=== PATIENT | female | born 1970 | race Hispanic/Latino ===

== ENCOUNTER 2018-10-30 17:41 | Emergency (ER) | payer OTHER ==
[2018-10-30] MEDS ORDERED: dexAMETHasone 10 MG/ML VIAL ONE (18:27)
[2018-10-30] MEDS ORDERED: DIAZEPAM 5 MG TABLET ONE (18:28)
[2018-10-30] MEDS ORDERED: ONDANSETRON 4 MG/2 ML VIAL ONE (18:28)
[2018-10-30] MEDS ORDERED: KETOROLAC 30 MG/ML INJ ONE (18:28)
[2018-10-30] MEDS ORDERED: NA CHLORIDE 0.9% 250 ML ONE (18:28)
[2018-10-30] MEDS ORDERED: MORPHINE 2 MG/ML SYR ONE (18:28)
--- NOTE | 2018-10-30 18:56 | RAD REPORT ---
EXAM DESCRIPTION: CT - C Spine Wo Con - 10/30/2018 6:37 pm CLINICAL HISTORY: Left arm/shoulder radiculopathy COMPARISON: None. TECHNIQUE: Computed axial tomography of the cervical spine were obtained with sagittal and coronal r econstruction images generated and reviewed. All CT scans are performed using dose optimization technique as appropriate and may include automated exposure control or mA/KV adjustment according to patient size. FINDINGS: A cervical fracture is not seen. No dislocation No obvious large disc bulge/herniation. Central spinal stenosis is not noted A 2 centimeter right thyroid nodule suspected IMPRESSION: A cervical fracture is not seen. No significant abnormality displayed If the patient continues have symptoms to suggest spinal cord/spinal canal/ neural foramina pathology then MRI would be recommended. 2 centimeter right thyroid nodule suspected. Nonemergent thyroid ultrasound recommended
--- NOTE | 2018-10-30 19:24 | ER ---
Nurse's Notes [facility] Name: Elsa Hunter Age: 48 yrs Sex: Female : 1970 Arrival Date: 10/30/2018 Time: 17:44 Bed 19 Private MD: Diagnosis: Pain in left shoulder;Radiculopathy, cervical region Presentation: 10/30 17:49 Presenting complaint: Patient states: LEFT SHOULDER PAIN SINCE THIS MORNING. Transition bp of care: patient was not received from another setting of care. Onset of symptoms is unknown. Risk Assessment: Do you want to hurt yourself or someone else? Patient reports no desire to harm self or others. Initial Sepsis Screen: Does the patient meet any 2 criteria? No. Patient's initial sepsis screen is negative. Does the patient have a suspected source of infection? No. Patient's initial sepsis screen is negative. Care prior to arrival: None. 17:49 Method Of Arrival: Ambulatory bp 17:49 Acuity: ANASTACIA 4 bp Triage Assessment: 19:15 General: Appears in no apparent distress. comfortable, Behavior is calm, cooperative, cc3 appropriate for age. Historical: - Allergies: 17:50 No Known Allergies; bp - Home Meds: 17:50 Unable to obtain [Active]; bp - PMHx: 17:50 GERD; High Cholesterol; Hypertension; bp - Immunization history:: Adult Immunizations up to date. - Social history:: Smoking status: Patient/guardian denies using tobacco. - Ebola Screening: : No symptoms or risks identified at this time. - Family history:: not pertinent. Screenin:49 Abuse screen: Denies threats or abuse. Denies injuries from another. Nutritional ch screening: No deficits noted. Tuberculosis screening: No symptoms or risk factors identified. Fall Risk None identified. Assessment: 18:37 Pain: Complains of pain in left supraclavicular area, left clavicle, anterior aspect of ch left shoulder, left bicep, posterior aspect of left shoulder and left tricep Pain currently is 9 out of 10 on a pain scale. Pain began suddenly. Neuro: No deficits noted. Respiratory: No deficits noted. Airway is patent Trachea midline Respiratory effort is even, unlabored, Breath sounds are clear bilaterally. GI: Abdomen is round non-distended, Bowel sounds present X 4 quads. Derm: Skin is pink, warm \T\ dry. Musculoskeletal: Capillary refill Reports pain in anterior aspect of left shoulder and posterior aspect of left shoulder. 19:15 Reassessment: Patient appears in no apparent distress at this time. Patient and/or cc3 family updated on plan of care and expected duration. Pain level reassessed. Patient is alert, oriented x 3, equal unlabored respirations, skin warm/dry/pink. Received this female patient from morning shift RN Gaby as a case of left shoulder pain but now patient denies pain. With IV cannula gauge 22 at the right ACV saline locked. Patient denies pain at this time. Patient states feeling better. Patient states symptoms have improved. General: Appears in no apparent distress. comfortable, Behavior is calm, cooperative, appropriate for age. Pain: Denies pain. Neuro: Level of Consciousness is awake, alert, obeys commands, Oriented to person, place, time, situation, Appropriate for age. Cardiovascular: Denies chest pain, Capillary refill < 3 seconds in bilateral fingers Patient's skin is warm and dry. Respiratory: Airway is patent Respiratory effort is even, unlabored, Respiratory pattern is regular, symmetrical. GI: Abdomen is round non-distended. : No signs and/or symptoms were reported regarding the genitourinary system. EENT: No signs and/or symptoms were reported regarding the EENT system. Derm: Skin is intact, is healthy with good turgor, Skin is pink, warm \T\ dry. normal. Musculoskeletal: Circulation, motion, and sensation intact. Range of motion: limited in left arm. 20:00 Reassessment: Patient appears in no apparent distress at this time. Patient and/or cc3 family updated on plan of care and expected duration. Pain level reassessed. Patient is alert, oriented x 3, equal unlabored respirations, skin warm/dry/pink. Dr. Magaña discharged the patient home with prescriptions given. IV cannula removed and patient left ER vitally stable and ambulatory with her . No valuables left in the patient's room. Patient denies pain at this time. Patient states feeling better. Patient states symptoms have improved. Vital Signs: 17:50 BP 154 / 85; Pulse 71; Resp 16; Temp 98.3; Pulse Ox 99% ; Weight 69.85 kg; Height 4 ft. bp 9 in. (144.78 cm); 18:49 BP 146 / 72; Pulse 68; Resp 14; Temp 98.2; Pulse Ox 99% on R/A; Pain 6/10; ch 19:45 BP 143 / 77; Pulse 65; Resp 15 S; Pulse Ox 99% on R/A; Pain 0/10; cc3 17:50 Body Mass Index 33.32 (69.85 kg, 144.78 cm) bp ED Course: 17:44 Patient arrived in ED. mr 17:50 Triage completed. bp 17:50 Arm band placed on right wrist. bp 17:55 Andrew Magaña MD is Attending Physician. louise 18:01 Gaby Marquez, MARLYN is Primary Nurse. ch 18:15 Inserted saline lock: 22 gauge in right antecubital area, using aseptic technique. jb1 18:40 CT C Spine In Process Unspecified. EDMS 18:49 No apparent distress. Resting quietly. ch 18:49 Patient has correct armband on for positive identification. Placed in gown. Bed in low ch position. Call light in reach. Side rails up X 1. Adult w/ patient. Pulse ox on. NIBP on. Door closed. Noise minimized. Warm blanket given. Verbal reassurance given. 18:49 No provider procedures requiring assistance completed. ch 19:08 Report given to Rody holland. ch 19:18 José Miguel Love MD is Referral Physician. louise 19:37 Shoulder Left (2 View) XRAY In Process Unspecified. EDMS 20:00 IV discontinued, intact, bleeding controlled, No redness/swelling at site. Pressure cc3 dressing applied. Administered Medications: 18:30 Drug: TORadol 30 mg Route: IVP; Site: right antecubital; ch 19:05 Follow up: Response: No adverse reaction ch 18:30 Drug: morphine 2 mg Route: IVP; Site: right antecubital; ch 19:20 Follow up: Response: No adverse reaction; Pain is decreased; RASS: Alert and Calm (0) cc3 18:36 Drug: Zofran 4 mg Route: IVP; Site: right antecubital; ch 19:04 Follow up: Response: No adverse reaction; Marked relief of symptoms ch 19:04 Drug: Valium 5 mg Route: PO; ch 19:05 Follow up: Response: No adverse reaction; Marked relief of symptoms ch 19:05 Drug: Decadron - Dexamethasone 10 mg Route: IVP; Site: right antecubital; 20:00 Follow up: Response: No adverse reaction; Pain is decreased cc3 Outcome: 19:18 Discharge ordered by . louise 20:00 Discharged to home ambulatory, with family. cc3 20:00 Condition: stable 20:00 Discharge instructions given to patient, Instructed on discharge instructions, follow up and referral plans. medication usage, Demonstrated understanding of instructions, follow-up care, medications, Prescriptions given X 4. 20:02 Patient left the ED. cc3 Signatures: Dispatcher [employer] Fawad Hendrix Christina, MARLYN RN Andrew James MD MD cha Rivera, Adryan Stuart, RN RN Rody Ortega cc3
--- NOTE | 2018-10-30 19:25 | EDPHYS ---
Physician Documentation [facility] Name: Elsa Hunter Age: 48 yrs Sex: Female : 1970 Arrival Date: 10/30/2018 Time: 17:44 Bed 19 Private MD: ED Physician Andrew Magaña HPI: 10/30 18:07 This 48 yrs old Female presents to ER via Ambulatory with complaints of louise Shoulder Pain. 18:07 The patient or guardian complains of decreased range of motion. left shoulder, left louise trapezius and left sternocleidomastoid. Context: The problem was sustained at an unknown site. Onset: The symptoms/episode began/occurred 2 day(s) ago. Modifying factors: the symptoms are alleviated by nothing. remaining still, The symptoms are aggravated by lifting weight, movement, rotation of arm. Associated signs and symptoms: The patient has no apparent associated signs or symptoms. Severity of symptoms: At their worst the symptoms were moderate, in the emergency department the symptoms are unchanged. Treatment prior to arrival includes: no previous treatment. The patient has not experienced similar symptoms in the past. Historical: - Allergies: 17:50 No Known Allergies; bp - Home Meds: 17:50 Unable to obtain [Active]; bp - PMHx: 17:50 GERD; High Cholesterol; Hypertension; bp - Immunization history:: Adult Immunizations up to date. - Social history:: Smoking status: Patient/guardian denies using tobacco. - Ebola Screening: : No symptoms or risks identified at this time. - Family history:: not pertinent. ROS: 18:07 Constitutional: Negative for fever, chills, and weight loss, Eyes: Negative for injury, louise pain, redness, and discharge, ENT: Negative for injury, pain, and discharge, Neck: Negative for injury, pain, and swelling, Cardiovascular: Negative for chest pain, palpitations, and edema, Respiratory: Negative for shortness of breath, cough, wheezing, and pleuritic chest pain, Abdomen/GI: Negative for abdominal pain, nausea, vomiting, diarrhea, and constipation, Back: Negative for injury and pain, : Negative for injury, bleeding, discharge, and swelling, Skin: Negative for injury, rash, and discoloration, Neuro: Negative for headache, weakness, numbness, tingling, and seizure, Psych: Negative for depression, anxiety, suicide ideation, homicidal ideation, and hallucinations, Allergy/Immunology: Negative for hives, rash, and allergies, Endocrine: Negative for neck swelling, polydipsia, polyuria, polyphagia, and marked weight changes, Hematologic/Lymphatic: Negative for swollen nodes, abnormal bleeding, and unusual bruising. 18:07 MS/extremity: Positive for decreased range of motion, pain, tenderness, of the left supraclavicular area, left clavicle and left lateral posterior chest. Exam: 18:14 Constitutional: This is a well developed, well nourished patient who is awake, alert, louise and in no acute distress. Head/Face: Normocephalic, atraumatic. Eyes: Pupils equal round and reactive to light, extra-ocular motions intact. Lids and lashes normal. Conjunctiva and sclera are non-icteric and not injected. Cornea within normal limits. Periorbital areas with no swelling, redness, or edema. ENT: Nares patent. No nasal discharge, no septal abnormalities noted. Tympanic membranes are normal and external auditory canals are clear. Oropharynx with no redness, swelling, or masses, exudates, or evidence of obstruction, uvula midline. Mucous membranes moist. Chest/axilla: Normal chest wall appearance and motion. Nontender with no deformity. No lesions are appreciated. Cardiovascular: Regular rate and rhythm with a normal S1 and S2. No gallops, murmurs, or rubs. Normal PMI, no JVD. No pulse deficits. Respiratory: Lungs have equal breath sounds bilaterally, clear to auscultation and percussion. No rales, rhonchi or wheezes noted. No increased work of breathing, no retractions or nasal flaring. Abdomen/GI: Soft, non-tender, with normal bowel sounds. No distension or tympany. No guarding or rebound. No evidence of tenderness throughout. Back: No spinal tenderness. No costovertebral tenderness. Full range of motion. Skin: Warm, dry with normal turgor. Normal color with no rashes, no lesions, and no evidence of cellulitis. MS/ Extremity: Pulses equal, no cyanosis. Neurovascular intact. Full, normal range of motion. Neuro: Awake and alert, GCS 15, oriented to person, place, time, and situation. Cranial nerves II-XII grossly intact. Motor strength 5/5 in all extremities. Sensory grossly intact. Cerebellar exam normal. Normal gait. 18:14 Neck: External neck: is normal, no acute changes, C-spine: appears grossly normal, no acute changes, Trachea: is midline with no obvious abnormalities, ROM/movement: pain, limited range of motion, that is mild, that is moderate, when rotating to the left, with flexion, with extension, Meningeal signs: are not present, Kernig's sign is negative, Brudzinski's sign is negative, nuchal rigidity, is not appreciated. Vital Signs: 17:50 BP 154 / 85; Pulse 71; Resp 16; Temp 98.3; Pulse Ox 99% ; Weight 69.85 kg; Height 4 ft. bp 9 in. (144.78 cm); 18:49 BP 146 / 72; Pulse 68; Resp 14; Temp 98.2; Pulse Ox 99% on R/A; Pain 6/10; ch 19:45 BP 143 / 77; Pulse 65; Resp 15 S; Pulse Ox 99% on R/A; Pain 0/10; cc3 17:50 Body Mass Index 33.32 (69.85 kg, 144.78 cm) bp MDM: 17:55 Patient medically screened. [facility] 18:07 Data reviewed: vital signs, nurses notes, lab test result(s), EKG, radiologic studies. [facility] 10/30 17:57 Order name: CBC with Diff [facility] 10/30 17:57 Order name: Shoulder Left (2 View) XRAY [facility] 10/30 18:07 Order name: CT C Spine; Complete Time: 19:16 [facility] 10/30 18:07 Order name: Sling; Complete Time: 20:01 [facility] 10/30 19:17 Order name: EKG; Complete Time: 19:18 [facility] 10/30 19:17 Order name: EKG - Nurse/Tech; Complete Time: 19:54 [facility] Administered Medications: 18:30 Drug: TORadol 30 mg Route: IVP; Site: right antecubital; ch 19:05 Follow up: Response: No adverse reaction 18:30 Drug: morphine 2 mg Route: IVP; Site: right antecubital; ch 19:20 Follow up: Response: No adverse reaction; Pain is decreased; RASS: Alert and Calm (0) cc3 18:36 Drug: Zofran 4 mg Route: IVP; Site: right antecubital; 19:04 Follow up: Response: No adverse reaction; Marked relief of symptoms 19:04 Drug: Valium 5 mg Route: PO; 19:05 Follow up: Response: No adverse reaction; Marked relief of symptoms 19:05 Drug: Decadron - Dexamethasone 10 mg Route: IVP; Site: right antecubital; 20:00 Follow up: Response: No adverse reaction; Pain is decreased cc3 Disposition: 10/30/18 19:18 Discharged to Home. Impression: Pain in left shoulder, Radiculopathy, cervical region. - Condition is Stable. - Discharge Instructions: Joint Pain, Cervical Radiculopathy, Musculoskeletal Pain, Shoulder Pain, Shoulder Pain, [id number], Cervical Radiculopathy, [id number]. - Prescriptions for Ibuprofen 600 mg Oral Tablet - take 1 tablet by ORAL route every 8 hours As needed take with food; 21 tablet. Tylenol- Codeine #3 300-30 mg Oral Tablet - take 2 tablet by ORAL route every 6 hours As needed; 30 tablet. Valium 2 mg Oral Tablet - take 1 tablet by ORAL route every 8 hours As needed; 20 tablet. Medrol (Anthony) 4 mg Oral Tablets, Dose Pack - take 1 tablet by ORAL route as directed - follow package instructions; 1 packet. - Medication Reconciliation Form, Thank You Letter, Antibiotic Education, Prescription Opioid Use, Work release form form. - Follow up: Private Physician; When: 2 - 3 days; Reason: Recheck today's complaints, Continuance of care, Re-evaluation by your physician. Follow up: Dr. José Miguel Love; When: 2 - 3 days; Reason: Recheck today's complaints, Re-evaluation by your physician. - Problem is new. - Symptoms have improved. Signatures: Dispatcher [employer] EDGaby Padilla, Andrew Rutledge RN, ch, MD MD cha Peltier, Brian RN RN Rody Ortega cc3 Corrections: (The following items were deleted from the chart) 18:15 17:58 CBC with Automated Diff ordered. EDMS EDMS 18:15 17:58 COMPREHENSIVE METABOLIC PANEL+C.LAB.BRZ ordered. EDMS EDMS 18:15 17:58 TROPONIN (EMERG DEPT USE ONLY)+C.LAB.BRZ ordered. EDMS EDMS 19:06 17:57 IV Saline Lock - Large Bore ordered. [facility] 20:02 19:18 10/30/2018 19:18 Discharged to Home. Impression: Pain in left shoulder; cc3 Radiculopathy, cervical region. Condition is Stable. Discharge Instructions: Joint Pain, Cervical Radiculopathy, Musculoskeletal Pain, Shoulder Pain, Shoulder Pain, [id number], Cervical Radiculopathy, [id number]. Prescriptions for Ibuprofen 600 mg Oral Tablet - take 1 tablet by ORAL route every 8 hours As needed take with food; 21 tablet, Tylenol-Codeine #3 300-30 mg Oral Tablet - take 2 tablet by ORAL route every 6 hours As needed; 30 tablet, Valium 2 mg Oral Tablet - take 1 tablet by ORAL route every 8 hours As needed; 20 tablet, Medrol (Anthony) 4 mg Oral Tablets, Dose Pack - take 1 tablet by ORAL route as directed - follow package instructions; 1 packet. and Forms are Medication Reconciliation Form, Thank You Letter, Antibiotic Education, Prescription Opioid Use. Follow up: Private Physician; When: 2 - 3 days; Reason: Recheck today's complaints, Continuance of care, Re-evaluation by your physician. Follow up: Dr. José Miguel Love; When: 2 - 3 days; Reason: Recheck today's complaints, Re-evaluation by your physician. Problem is new. Symptoms have improved. [facility]
--- NOTE | 2018-10-30 19:57 | RAD REPORT ---
EXAM DESCRIPTION: RAD - Shoulder Left 2 View - 10/30/2018 7:37 pm CLINICAL HISTORY: Left shoulder pain FINDINGS: No fracture or dislocation is seen. Mild narrowing of the AC joint with small osteophytes
[2018-10-30 21:16] VITALS: O2SAT 99
[2018-10-30 21:17] VITALS: BP 146/72; TEMP 98.2
--- NOTE | 2018-10-31 08:29 | EKG ---
Test Date: 2018-10-30 Test Time: 19:23:55 [employer] Trouble Shooter: ALIZE MEASUREMENT RESULTS: Intervals: Rate: 63 KS: 154 QRSD: 76 QT: 414 QTc: 423 Champion: P: 44 KS: 154 QRS: 21 T: 40 INTERPRETIVE STATEMENTS: Normal sinus rhythm Septal infarct, age undetermined Abnormal ECG Compared to ECG 02/04/2016 10:36:38 Myocardial infarct finding now present Sinus bradycardia no longer present Electronically Signed On 10-31-18 08:28:25 CDT by Sb Yao
== END 2018-10-30 20:02 | disposition home or self-care (01) ==
LOC: ER 17:41
DX: M54.12 Radiculopathy, cervical region (principal); I10 Essential (primary) hypertension
CPT/HCPCS: 93005; 72125; 73030; 96375; 96374; 99284; J1100; J2270; J2405

== ENCOUNTER 2020-05-22 12:06 | Emergency (ER) | payer BC ==
--- OUTSIDE RECORDS SUMMARY | 2020-05-22 12:09 | XMS REPORT | Continuity of Care Document ---
:1970 Author Organization [facility] t Address [address] [place] [address] [address]. [address] [place] [address] Care Team Providers Name Role Phone Unavailable Unavailable Unavailable Problems Condition Condition Condition Status Onset Resolution Last Treating Co mments Source Name Details Category Date Date Treatment Clinician Date IUD IUD Problem Active [facility] (intrauter (intrauter Maria G kes - ine ine Memoria device) in device) in l place [facility] Sleep Sleep Problem Active [facility] ap[facility] Type 2 Type [address] [facility] diabetes diabetes [facility] - mellitus mellitus Mem[facility] a without without l complicati complicati Ou tpati on, on, ent without without Clinics long-term long-term current current use of use of insulin insulin Pure Pure Problem Active [facility] hyperchole hyperchole Maria G kes - sterolemia sterolemia Me moria l [facility] Essential Essential Problem Active [facility] hypertensi hypertensi Maria G kes - on on Memoria l [facility] ent Clinics Hot Hot Problem Active [facility] flashes flashes [facility] Allergies, Adverse Reactions, Alerts This patient has no known allergies or adverse reactions. Medications Ordered Filled Start Stop Current Ordering Indication Dosage Frequency Signature Comments Components Source Medication Medication Date Date Medication? Clinician (SIG) Name Name Accu-Chek Accu-Chek 2019- Yes José Miguel as [facility] Isabel 1-16 Love directed [facility] - SmartView SmartView 00:00: Mem oria test strips test strips 00 [facility] ent [facility] Accu-Chek Accu-Chek 2018- Yes José Miguel as [facility] Citlaly Citlaly 1-16 Love directed [facility] - 00:00: Memoria 00 [facility] Lovastatin Lovastatin 2017-02 Yes José Miguel [address] [facility] 0-10 Love with the [facility] - 00:00: evening Memoria 00 meal [facility] MetFORMIN MetFORMIN 2017-02 Yes José Miguel [address] [facility] HCl ER HCl ER 0-10 Love with [facility] - 00:00: evening [facility]oria 00 meal l Outpati ent Clinics Mirena (52 Mirena (52 2015-02 Yes José Miguel not [facility] MG) MG) 2-30 Love defined [facility] - 00:00: [facility] 00 l [facility]pat[facility] ent Clinics Potassium Potassium Yes José Miguel [address] [facility] Gluconate Gluconate Love [facility] Ferrous Ferrous Yes José Miguel [address] Sulfate Sulfate [facility] Vitamin C Vitamin C Yes José Miguel [address] [facility] Ibuprofen Ibuprofen Yes José Miguel not [facility] Love defined [facility] Diazepam Diazepam Yes José Miguel not [facility] Love defined [facility] Singulair Singulair Yes José Miguel [address] [facility] MethylPREDN MethylPREDN Yes José Miguel not [facility] ISolone ISolone Love defined [facility] Lisinopril Lisinopril Yes José Miguel not [facility] Love defined [facility] Acetaminoph Acetaminoph Yes José Miguel not [facility] en-Codeine en-Codeine Love defined [facility] - #3 #3 [facility] Vitamin D-3 Vitamin D-3 Yes José Miguel [address] [facility] Calcium + Calcium + Yes José Miguel not [facility] D3 D3 Love defined [facility] Zestoretic Zestoretic Yes José Miguel [address] [facility] Amlodipine Amlodipine Yes José Miguel not [facility] Besylate Besylate Love defined [facility] Magnesium Magnesium Yes José Miguel [address] [facility] Love with a [facility] - meal [facility] Fish Oil Fish Oil Yes José Miguel [address] [facility] Procedures This patient has no known procedures. Encounters Start End Encounter Admission Attending Care Care Encounter Source Date/Time Date/Time Type Type Clinicians Facility Department ID 2018-11-14 2018-11-14 Outpatient Blayne Stewart [id number] [facility] 13:27:00 13:27:00 [facility] [place]ics 2018-11-02 2018-11-02 Outpatient Blayne Stewart [id number] [facility] 10:30:00 10:30:00 t [facility] [place] ent Clinics Results This patient has no known results.
[2020-05-22] MEDS ORDERED: PANTOPRAZOLE 40 MG INJ ONE (13:11)
[2020-05-22 13:27] LABS: Absolute Lymphocytes (CBC) 3.4 K/uL (0.7-4.9); Basophils % 0.6 % (0-1.3); Hematocrit 40.4 % (36.0-45.0); MPV 9.8 fL (7.6-11.3); RBC Red Blood Cell Count 4.99 M/uL (3.86-4.86)
[2020-05-22 13:36] LABS: ALT/SGPT 50 U/L (12-78); AST/SGOT 23 U/L (15-37); Alkaline Phosphatase 120 U/L (45-117); BUN Blood Urea Nitrogen 12 mg/dL (7-18); Bicarbonate 32 mmol/L (21-32); Bilirubin Direct < 0.1 mg/dL (0-0.2); Bilirubin Total 0.3 mg/dL (0.2-1.0); Glucose Level 96 mg/dL (74-106); Lipase 149 U/L (73-393); Potassium 3.5 mmol/L (3.5-5.1); Protein, Total 7.8 g/dL (6.4-8.2); Sodium Level 143 mmol/L (136-145)
--- NOTE | 2020-05-22 14:22 | RAD REPORT ---
EXAM DESCRIPTION: CT - Abdomen Pelvis W Contrast - 05/22/2020 2:02 pm CLINICAL HISTORY: Abdominal pain COMPARISON: none. TECHNIQUE: Computed axial tomography of the abdomen pelvis was obtained. 100 cc Isovue-300 was admin istered intravenously. Oral contrast was not requested which limits evaluation of bowel. All CT scans are performed using dose optimization technique as appropriate and may include automated exposure control or mA/KV adjustment according to patient size. FINDINGS: The liver, spleen, pancreas, adrenal and kidneys appear unremarkable. There is no evidence of diverticulitis. Normal appendix IMPRESSION: No acute abnormality is displayed.
[2020-05-22] MEDS ORDERED: MORPHINE 4 MG/ML SYR ONE (14:39)
[2020-05-22] MEDS ORDERED: ONDANSETRON 4 MG/2 ML VIAL ONE (14:39)
--- NOTE | 2020-05-22 14:42 | ER ---
Nurse's Notes [facility] Name: Elsa Hunter Age: 50 yrs Sex: Female : 1970 Arrival Date: 05/22/2020 Time: 12:11 Bed 4 Private MD: Milan Jackson C Diagnosis: Upper abdominal pain, unspecified Presentation: 05/22 12:23 Chief complaint: Patient states: Epigastric pain with black diarrhea stools for 3 days. ll1 No fever or N/V. Coronavirus screen: Client denies travel out of the [place] in the last 14 days. At this time, the client does not indicate any symptoms associated with coronavirus-19. Ebola Screen: Patient denies travel to an Ebola-affected area in the 21 days before illness onset. Initial Sepsis Screen: Does the patient meet any 2 criteria? No. Patient's initial sepsis screen is negative. Does the patient have a suspected source of infection? Yes: Acute abdominal pain. Risk Assessment: Do you want to hurt yourself or someone else? Patient reports no desire to harm self or others. Onset of symptoms was May 20, 2020. 12:23 Method Of Arrival: Ambulatory ll1 12:23 Acuity: ANASTACIA 3 ll1 Historical: - Allergies: 12:23 No Known Allergies; ll1 - PMHx: 12:23 Hypertension; GERD; High Cholesterol; ll1 - PSHx: 12:23 uterine sx with mirena placement; ll1 - Immunization history:: Flu vaccine is not up to date. - Social history:: Smoking status: Patient denies any tobacco usage or history of. Screenin:45 Abuse screen: Denies threats or abuse. Denies injuries from another. Nutritional hb screening: No deficits noted. Tuberculosis screening: No symptoms or risk factors identified. Fall Risk None identified. Assessment: 12:45 General: Appears in no apparent distress. Behavior is calm, cooperative. Pain: Pain hb currently is 2 out of 10 on a pain scale. Neuro: Level of Consciousness is awake, alert, obeys commands, Oriented to person, place, time, situation. Cardiovascular: Patient's skin is warm and dry. Respiratory: Respiratory effort is even, unlabored, Respiratory pattern is regular, symmetrical. GI: Reports rectal bleeding, epigastric pain. : No signs and/or symptoms were reported regarding the genitourinary system. EENT: No signs and/or symptoms were reported regarding the EENT system. Derm: Skin is pink, warm \T\ dry. Musculoskeletal: No signs and/or symptoms reported regarding the musculoskeletal system. 13:34 Reassessment: No changes from previously documented assessment. Patient and/or family ld1 updated on plan of care and expected duration. Pain level reassessed. Patient is alert, oriented x 3, equal unlabored respirations, skin warm/dry/pink. Patient denies pain at this time. 14:13 Reassessment: Patient appears in no apparent distress at this time. Patient and/or hb family updated on plan of care and expected duration. Pain level reassessed. Patient is alert, oriented x 3, equal unlabored respirations, skin warm/dry/pink. 14:14 Reassessment: Notified ERP of BP running high. ld1 14:40 Reassessment: ERP at bedside discussing POC. ld1 Vital Signs: 12:23 BP 171 / 89; Pulse 60; Resp 17; Temp 98.5; Pulse Ox 100% ; Weight 66.68 kg; Height 4 ll1 ft. 9 in. (144.78 cm); Pain 0/10; 14:14 BP 172 / 68; Pulse 52; Resp 15; Pulse Ox 97% on R/A; hb 14:57 BP 162 / 109; Pulse 60; Resp 18; Pulse Ox 100% on R/A; Pain 0/10; ld1 12:23 Body Mass Index 31.81 (66.68 kg, 144.78 cm) ll1 ED Course: 12:11 Patient arrived in ED. mr 12:12 Milan Jackson MD is Private Physician. mr 12:22 Arm band placed on. ll1 12:24 Triage completed. ll1 12:32 Celsa Garcia, MARLYN is Primary Nurse. hb 12:41 [facility]-C [facility] kb 12:41 Kelton Merchant MD is Attending Physician. kb 12:45 Patient has correct armband on for positive identification. Bed in low position. Call hb light in reach. 13:12 Inserted saline lock: 20 gauge in left antecubital area, using aseptic technique. Blood ld1 collected. 14:01 CT Abd/Pelvis - IV Contrast Only In Process Unspecified. EDMS 14:41 Milan Jackson MD is Referral Physician. kb 14:59 No provider procedures requiring assistance completed. Patient transferred, IV remains ld1 in place. bleeding controlled, No redness/swelling at site. Pressure dressing applied. Administered Medications: 13:11 Drug: ProTONIX 40 mg Route: IVP; Site: left antecubital; ld1 14:00 Follow up: Response: No adverse reaction hb 14:30 Drug: morphine 4 mg Route: IVP; Site: left antecubital; ld1 14:30 Drug: Zofran (Ondansetron) 4 mg Route: IVP; Site: left antecubital; ld1 Outcome: 14:41 Discharge ordered by . kb 15:00 Discharged to home via wheelchair. ld1 15:00 Condition: stable 15:00 Discharge instructions given to patient, Instructed on discharge instructions, follow up and referral plans. medication usage, Demonstrated understanding of instructions, follow-up care, medications. 15:02 Patient left the ED. ld1 Signatures: Dispatcher [employer] EDMS Tresa Al, LILLIAN-C GRAPHIC ART SALES REPRESENTATIVE-Cristina Lynch Heather, RN Cristi Scanlon RN RN ll1 Felicita Queen RN RN ld1
--- NOTE | 2020-05-22 14:42 | EDPHYS ---
Physician Documentation [facility] Name: Elsa Hunter Age: 50 yrs Sex: Female : 1970 Arrival Date: 05/22/2020 Time: 12:11 Bed 4 Private MD: Milan Jackson C ED Physician Kelton Merchant HPI: 05/22 15:33 This 50 yrs old Female presents to ER via Ambulatory with complaints of kb Black/Tarry Stools. 15:33 The patient presents with abdominal pain in the epigastric area. Onset: The kb symptoms/episode began/occurred 3 day(s) ago. The symptoms do not radiate. Associated signs and symptoms: Pertinent positives: black stool. The symptoms are described as constant. Modifying factors: The symptoms are alleviated by nothing, the symptoms are aggravated by nothing. Severity of pain: At its worst the pain was mild moderate in the emergency department the pain is unchanged. The patient has not experienced similar symptoms in the past. The patient has not recently seen a physician. Historical: - Allergies: 12:23 No Known Allergies; ll1 - PMHx: 12:23 Hypertension; GERD; High Cholesterol; ll1 - PSHx: 12:23 uterine sx with mirena placement; ll1 - Immunization history:: Flu vaccine is not up to date. - Social history:: Smoking status: Patient denies any tobacco usage or history of. ROS: 15:33 Constitutional: Negative for fever, chills, and weight loss, Cardiovascular: Negative kb for chest pain, palpitations, and edema, Respiratory: Negative for shortness of breath, cough, wheezing, and pleuritic chest pain, MS/Extremity: Negative for injury and deformity, Skin: Negative for injury, rash, and discoloration, Neuro: Negative for headache, weakness, numbness, tingling, and seizure. 15:33 Abdomen/GI: Positive for abdominal pain, black/tarry stool. Exam: 15:32 Constitutional: This is a well developed, well nourished patient who is awake, alert, kb and in no acute distress. Head/Face: Normocephalic, atraumatic. Cardiovascular: Regular rate and rhythm with a normal S1 and S2. No gallops, murmurs, or rubs. No pulse deficits. Respiratory: Respirations even and unlabored. No increased work of breathing, no retractions or nasal flaring. Back: No spinal tenderness. No costovertebral tenderness. Full range of motion. Skin: Warm, dry with normal turgor. Normal color. MS/ Extremity: Pulses equal, no cyanosis. Neurovascular intact. Full, normal range of motion. Neuro: Awake and alert, GCS 15, oriented to person, place, time, and situation. Moves all extremities. Normal gait. 15:32 Abdomen/GI: Inspection: abdomen appears normal, Bowel sounds: normal, in all quadrants, Palpation: soft, in all quadrants, mild abdominal tenderness, in the epigastric area, Rectal exam: rectal tone normal, Stool: guaiac negative, black. Vital Signs: 12:23 BP 171 / 89; Pulse 60; Resp 17; Temp 98.5; Pulse Ox 100% ; Weight 66.68 kg; Height 4 ll1 ft. 9 in. (144.78 cm); Pain 0/10; 14:14 BP 172 / 68; Pulse 52; Resp 15; Pulse Ox 97% on R/A; hb 14:57 BP 162 / 109; Pulse 60; Resp 18; Pulse Ox 100% on R/A; Pain 0/10; ld1 12:23 Body Mass Index 31.81 (66.68 kg, 144.78 cm) ll1 MDM: 12:41 Patient medically screened. kb 15:31 Data reviewed: vital signs, nurses notes. Data interpreted: Pulse oximetry: on room air kb is 100 %. Interpretation: normal. Counseling: I had a detailed discussion with the patient and/or guardian regarding: the historical points, exam findings, and any diagnostic results supporting the discharge/admit diagnosis, lab results, radiology results, the need for outpatient follow up, a family practitioner, a field associate, to return to the emergency department if symptoms worsen or persist or if there are any questions or concerns that arise at home. 05/22 12:42 Order name: Basic Metabolic Panel; Complete Time: 13:40 kb 05/22 12:42 Order name: CBC with Diff kb 05/22 12:42 Order name: Hepatic Function; Complete Time: 13:40 kb 05/22 12:42 Order name: Lipase; Complete Time: 13:40 kb 05/22 13:30 Order name: Troponin (emerg Dept Use Only); Complete Time: 14:37 kb 05/22 15:00 Order name: CBC Smear Scan EDWA 05/22 12:42 Order name: IV Saline Lock; Complete Time: 13:12 kb 05/22 12:42 Order name: Labs collected and sent; Complete Time: 13:12 kb 05/22 13:30 Order name: EKG; Complete Time: 13:31 kb 05/22 13:31 Order name: EKG - Nurse/Tech; Complete Time: 13:41 kb 05/22 13:40 Order name: CT Abd/Pelvis - IV Contrast Only; Complete Time: 14:26 kb Administered Medications: 13:11 Drug: ProTONIX 40 mg Route: IVP; Site: left antecubital; ld1 14:00 Follow up: Response: No adverse reaction hb 14:30 Drug: morphine 4 mg Route: IVP; Site: left antecubital; ld1 14:30 Drug: Zofran (Ondansetron) 4 mg Route: IVP; Site: left antecubital; ld1 Disposition: 05/23 06:55 Co-signature as Attending Physician, Kelton Merchant MD I agree with the assessment and kdr plan of care. Disposition: 05/22/20 14:41 Discharged to Home. Impression: Upper abdominal pain, unspecified. - Condition is Stable. - Discharge Instructions: Gastroesophageal Reflux Disease, Adult, Abdominal Pain, Adult, [id number]. - Prescriptions for Protonix 40 mg Oral Tablet - take 1 tablet by ORAL route once daily; 30 tablet. - Medication Reconciliation Form, Thank You Letter, Antibiotic Education, Prescription Opioid Use form. - Work release form (05/22/20 15:05). sv - Follow up: Emergency Department; When: As needed; Reason: Worsening of condition. Follow up: Milan Jackson MD; When: 2 - 3 days; Reason: Recheck today's complaints, Continuance of care, Re-evaluation by your physician. Signatures: Dispatcher [employer] [facility] Tresa Al, COMMERCIAL ESCROW ASSISTANT-C COMMERCIAL ESCROW ASSISTANT-Kelton Chen MD MD kdr Lewis, Lynsay RN RN ll1 Felicita Queen RN RN ld1 Angelita Frey RN, Heather RN Corrections: (The following items were deleted from the chart) 05/22 15:02 14:41 05/22/2020 14:41 Discharged to Home. Impression: Upper abdominal pain, ld1 unspecified. Condition is Stable. Forms are Medication Reconciliation Form, Thank You Letter, Antibiotic Education, Prescription Opioid Use. Follow up: Emergency Department; When: As needed; Reason: Worsening of condition. Follow up: A Jackson; When: 2 - 3 days; Reason: Recheck today's complaints, Continuance of care, Re-evaluation by your physician. kb
[2020-05-22 15:00] LABS: Blood Morphology Comment NOT SEEN (NOT SEEN); Platelet Estimate ADEQ; White Blood Cell Scan OK (OK)
[2020-05-22 15:13] VITALS: TEMP 98.5
[2020-05-22 15:15] VITALS: BP 162/109; O2SAT 100
== END 2020-05-22 15:02 | disposition home or self-care (01) ==
LOC: ER 12:06
DX: R10.13 Epigastric pain (principal); I10 Essential (primary) hypertension
CPT/HCPCS: 93005; 85025; 80048; 36415; 80076; 84484; 83690; 74177; 96375; 96374; 99284; Q9967; C9113; J2405

== ENCOUNTER 2020-07-26 19:12 | Emergency (ER) | payer BC ==
--- OUTSIDE RECORDS SUMMARY | 2020-07-26 19:15 | XMS REPORT | Continuity of Care Document ---
:1970 Author Organization [facility] t Address [address] [place] [address] [address] [place] [address] Care Team Providers Name Role Phone Unavailable Unavailable Unavailable Problems Condition Condition Condition Status Onset Resolution Last Treating Co mments Source Name Details Category Date Date Treatment Clinician Date IUD IUD Problem Active [facility] (intrauter (intrauter Maria G kes - ine ine Memoria device) in device) [facility] Sleep Sleep Problem [facility] Type 2 Type [address] [facility] diabetes diabetes [facility] - mellitus mellitus Memori a without without l complicati complicati Ou tpati on, on, ent without without Clinics long-term long-term current current use of use of insulin insulin Pure Pure Problem Active [facility] hyperchole hyperchole Maria G kes - sterolemia sterolemia Me [facility] Essential Essential Problem Active [facility] hypertensi hypertensi Maria G kes - on on Memoria l [facility] Hot Hot Problem Active [facility] flashes flashes [facility] Allergies, Adverse Reactions, Alerts This [...] Mem oria test strips test strips 00 [facility] ent [facility] Accu-Chek Accu-Chek 2018- Yes José Miguel as [facility] Citlaly Citlaly 1-16 Love directed [facility] - 00:00: Memoria 00 [facility] ent [facility] Lovastatin Lovastatin 2017-02 Yes José Miguel [address] [facility] 0-10 Lvoe with the [facility] - 00:00: evening Memoria 00 meal [facility] ent [facility] MetFORMIN MetFORMIN 2017-02 Yes José Miguel 1 [...] ID 2018-11-14 2018-11-14 Outpatient Blayne Stewart [id number] [facility] 13:27:00 13:27:00 t [facility] - [facility] Clinics 2018-11-02 2018-11-02 Outpatient Blayne Stewart [id number] [facility] St 10:30:00 10:30:00 t [facility] and [facility] - and [facility] ent Clinics Results This patient has no known results.
[2020-07-26 19:33] LABS: Urine Blood Trace-intact (Negative); Urine Glucose Negative (Negative); Urine Protein Negative (Negative); Urine Specific Gravity 1.015 (1.005-1.030)
[2020-07-26 20:07] LABS: Urine Bacteria <20 /HPF (<20); Urine RBC <5 /HPF (NONE SEEN)
[2020-07-26 20:08] LABS: Absolute Lymphocytes (CBC) 4.6 K/uL (0.7-4.9); Basophils % 0.5 % (0-1.3); Hematocrit 38.3 % (36.0-45.0); Lymphocytes % 47.5 % (15.3-44.8); MPV 10.5 fL (7.6-11.3); RBC Red Blood Cell Count 4.83 M/uL (3.86-4.86)
[2020-07-26 20:31] LABS: ALT/SGPT 38 U/L (12-78); Albumin 3.7 g/dL (3.4-5.0); Alkaline Phosphatase 112 U/L (45-117); BUN Blood Urea Nitrogen 14 mg/dL (7-18); Bicarbonate 29 mmol/L (21-32); Bilirubin Direct < 0.1 mg/dL (0-0.2); Bilirubin Total 0.4 mg/dL (0.2-1.0); Glucose Level 99 mg/dL (74-106); Lipase 121 U/L (73-393); Protein, Total 7.5 g/dL (6.4-8.2); Sodium Level 140 mmol/L (136-145)
[2020-07-26 20:33] LABS: AST/SGOT 27 U/L (15-37); Potassium 3.8 mmol/L (3.5-5.1)
--- NOTE | 2020-07-26 21:24 | RAD REPORT ---
EXAM DESCRIPTION: CT - Abdomen Pelvis W Contrast - 07/26/2020 9:13 pm CLINICAL HISTORY: Abdominal pain COMPARISON: May 2020 TECHNIQUE: Computed axial tomography of the abdomen pelvis was obtained. 100 cc Isovue-300 was admin istered intravenously. Oral contrast was not requested which limits evaluation of bowel. All CT scans are performed using dose optimization technique as appropriate and may include automated exposure control or mA/KV adjustment according to patient size. FINDINGS: The liver, spleen, pancreas, adrenal and kidneys appear unremarkable. There is no evidence of diverticulitis. Normal appendix Fibroids are present within the uterus. IMPRESSION: No acute abnormality is displayed.
--- NOTE | 2020-07-26 21:59 | ER ---
Nurse's Notes [facility] Name: Elsa Hunter Age: 50 yrs Sex: Female : 1970 Arrival Date: 07/26/2020 Time: 19:19 Bed 14 Private MD: Diagnosis: Generalized abdominal pain Presentation: 07/26 19:20 Chief complaint: Patient states: Right side of my abdomen is hurting so bad and loss of rr5 appetite for the past 3 days, denies N/V/D or fever. Coronavirus screen: Client denies travel out of the [place] in the last 14 days. At this time, the client does not indicate any symptoms associated with coronavirus-19. Ebola Screen: Patient negative for fever greater than or equal to 101.5 degrees Fahrenheit, and additional compatible Ebola Virus Disease symptoms Patient denies exposure to infectious person. Patient denies travel to an Ebola-affected area in the 21 days before illness onset. Initial Sepsis Screen: Does the patient meet any 2 criteria? No. Patient's initial sepsis screen is negative. Does the patient have a suspected source of infection? No. Patient's initial sepsis screen is negative. Risk Assessment: Do you want to hurt yourself or someone else? Patient reports no desire to harm self or others. Onset of symptoms was July 23, 2020. 19:20 Method Of Arrival: Ambulatory rr5 19:20 Acuity: ANASTACIA 3 rr5 Triage Assessment: 19:36 General: Appears in no apparent distress. Behavior is calm, cooperative. ak2 Historical: - Allergies: 19:24 No Known Allergies; rr5 - Home Meds: 19:24 Lisinopril Oral [Active]; amlodipine oral [Active]; rr5 - PMHx: 19:24 GERD; High Cholesterol; Hypertension; rr5 - PSHx: 19:24 D \T\ C; rr5 - Immunization history:: Adult Immunizations not up to date, Client reports receiving the 2nd dose of the Covid vaccine, 2 weeks ago. - Social history:: Smoking status: unknown Patient/guardian denies using alcohol, street drugs, tobacco products. Screenin:35 Abuse screen: Denies threats or abuse. Denies injuries from another. Nutritional ak2 screening: No deficits noted. Tuberculosis screening: No symptoms or risk factors identified. Fall Risk None identified. Assessment: 19:35 Pain: Complains of pain in abdomen. GI: Bowel sounds present X 4 quads. Abd is soft X 4 ak2 quads. 21:34 Reassessment: Patient appears in no apparent distress at this time. Patient and/or ak2 family updated on plan of care and expected duration. Pain level reassessed. Vital Signs: 19:20 BP 154 / 91; Pulse 65; Resp 18; Temp 98.4; Pulse Ox 100% ; Weight 67.13 kg; Height 4 rr5 ft. 9 in. (144.78 cm); Pain 5/10; 21:34 BP 136 / 74; Pulse 62; Resp 18; Pulse Ox 98% on R/A; ak2 19:20 Body Mass Index 32.03 (67.13 kg, 144.78 cm) rr5 ED Course: 19:19 Patient arrived in ED. cf2 19:23 Triage completed. rr5 19:24 Arm band placed on right wrist. rr5 19:25 Arnulfo Hamilton NP is PHCP. pm1 19:25 Levar Larios MD is Attending Physician. pm1 19:34 Aaron Unger is Primary Nurse. ak2 19:35 Patient has correct armband on for positive identification. ak2 19:35 No provider procedures requiring assistance completed. Inserted saline lock: 20 gauge ak2 in right antecubital area, using aseptic technique. 21:13 CT Abd/Pelvis - IV Contrast Only In Process Unspecified. EDMS 21:16 PHCP role handed off by Arnulfo Hamilton NP [facility] 21:16 Man Dunn PA is PHCP. [facility] 21:58 Brian Zhang MD is Referral Physician. [facility] Administered Medications: 20:27 Drug: NS 0.9% 1000 ml Route: IV; Rate: 1000 ml; Site: right antecubital; ak2 Point of Care Testing: Urine : 20:27 hCG Reading: Negative; Control Reading: Negative; ak2 Outcome: 21:58 Discharge ordered by . samantha 22:05 Discharged to home ambulatory. ak2 22:05 Condition: good 22:05 Discharge instructions given to patient, Prescriptions given X 22:06 Patient left the ED. ak2 Signatures: Dispatcher [employer] EDMS Man Dunn PA PA jmm Marinas, Patrick, NP NP pm1 Andre Pearl, RN RN rr5 Oswald Grimes cf2 Aaron Unger ar2
--- NOTE | 2020-07-26 22:00 | EDPHYS ---
Physician Documentation [facility] Name: Elsa Hunter Age: 50 yrs Sex: Female : 1970 Arrival Date: 07/26/2020 Time: 19:19 Bed 14 Private MD: ED Physician Levar Larios HPI: 07/26 19:36 This 50 yrs old Female presents to ER via Ambulatory with complaints of pm1 Abdominal Pain, Decreased Appetite. 19:36 The patient presents with abdominal pain right lower quadrant. Onset: The pm1 symptoms/episode began/occurred 3 day(s) ago. The symptoms do not radiate. Associated signs and symptoms: Pertinent positives: decreased appetite, Pertinent negatives: nausea, vomiting, and diarrhea, chest pain, dysuria, fever, shortness of breath. The symptoms are described as sharp, and gassiness. Modifying factors: The symptoms are alleviated by nothing, tried some gas-x but no relief. the symptoms are aggravated by nothing. Severity of pain: in the emergency department the pain is actually worse. The patient has not experienced similar symptoms in the past. The patient has not recently seen a physician. Historical: - Allergies: 19:24 No Known Allergies; rr5 - Home Meds: 19:24 Lisinopril Oral [Active]; amlodipine oral [Active]; rr5 - PMHx: 19:24 GERD; High Cholesterol; Hypertension; rr5 - PSHx: 19:24 D \T\ C; rr5 - Immunization history:: Adult Immunizations not up to date, Client reports receiving the 2nd dose of the Covid vaccine, 2 weeks ago. - Social history:: Smoking status: unknown Patient/guardian denies using alcohol, street drugs, tobacco products. ROS: 19:36 Constitutional: Negative for fever, chills, and weight loss, Cardiovascular: Negative pm1 for chest pain, palpitations, and edema, Respiratory: Negative for shortness of breath, cough, wheezing, and pleuritic chest pain. 19:36 Back: Negative for injury and pain, : Negative for injury, bleeding, discharge, and swelling, MS/Extremity: Negative for injury and deformity, Skin: Negative for injury, rash, and discoloration, Neuro: Negative for headache, weakness, numbness, tingling, and seizure. 19:36 Abdomen/GI: Positive for abdominal pain, Negative for nausea, vomiting, and diarrhea. 19:36 All other systems are negative. Exam: 19:36 Constitutional: This is a well developed, well nourished patient who is awake, alert, pm1 and in no acute distress. Head/Face: Normocephalic, atraumatic. 19:36 Back: No spinal tenderness. No costovertebral tenderness. Full range of motion. Skin: Warm, dry with normal turgor. Normal color with no rashes, no lesions, and no evidence of cellulitis. MS/ Extremity: Pulses equal, no cyanosis. Neurovascular intact. Full, normal range of motion. 19:36 Eyes: Exam is negative for acute changes, Periorbital structures: appear normal, Pupils: no acute changes, Extraocular movements: no acute changes. 19:36 ENT: Exam is negative for acute changes, Mouth: Lips: normal, Oral mucosa: normal, pink and intact, moist. 19:36 Cardiovascular: Rate: normal, Rhythm: regular, Pulses: no pulse deficits are appreciated, Heart sounds: normal, Edema: is not appreciated. 19:36 Respiratory: Exam negative for acute changes, respiratory distress, shortness of breath, Breath sounds: are clear throughout. 19:36 Abdomen/GI: Inspection: obese Palpation: soft, in all quadrants, mild abdominal tenderness, in the right lower quadrant, mass, is not appreciated, rebound tenderness, is not appreciated. 19:36 Neuro: Exam negative for acute changes, Orientation: is normal, Mentation: is normal, Motor: is normal, moves all fours. Vital Signs: 19:20 BP 154 / 91; Pulse 65; Resp 18; Temp 98.4; Pulse Ox 100% ; Weight 67.13 kg; Height 4 rr5 ft. 9 in. (144.78 cm); Pain 5/10; 21:34 BP 136 / 74; Pulse 62; Resp 18; Pulse Ox 98% on R/A; ak2 19:20 Body Mass Index 32.03 (67.13 kg, 144.78 cm) rr5 MDM: 19:31 Patient medically screened. pm1 20:38 Data reviewed: vital signs. Data interpreted: Pulse oximetry: on room air is 100 %. pm1 Interpretation: normal. 21:56 Counseling: I had a detailed discussion with the patient and/or guardian regarding: the [facility] historical points, exam findings, and any diagnostic results supporting the discharge/admit diagnosis, lab results, radiology results, the need for outpatient follow up, to return to the emergency department if symptoms worsen or persist or if there are any questions or concerns that arise at home. ED course: Patient advised to follow up with pcp and otherwise given strict return precautions. patient understood and agrees with the plan of care. . 07/26 19:32 Order name: Urine Microscopic Only [facility] 07/26 19:32 Order name: Urine Dipstick-Ancillary; Complete Time: 20:07 [facility] 07/26 19:32 Order name: Urine Microscopic Only; Complete Time: 20:33 [facility] 07/26 19:37 Order name: Basic Metabolic Panel; Complete Time: 20:38 pm 07/26 19:37 Order name: CBC with Diff; Complete Time: 20:33 pm 07/26 19:37 Order name: Hepatic Function; Complete Time: 20:38 [facility] 07/26 19:32 Order name: Urine Dipstick-Ancillary (obtain specimen); Complete Time: 19:32 [facility] 07/26 19:37 Order name: Lipase; Complete Time: 20:38 pm 07/26 19:37 Order name: IV Saline Lock [facility] 07/26 19:37 Order name: Labs collected and sent [facility] 07/26 19:37 Order name: CT Abd/Pelvis - IV Contrast Only; Complete Time: 21:40 [facility] 07/26 19:37 Order name: Urine Dipstick-Ancillary (obtain specimen) [facility] 07/26 20:08 Order name: Urine Culture [facility] 07/26 19:37 Order name: Urine Test (obtain specimen) [facility] 07/26 19:37 Order name: NPO pm1 Administered Medications: 20:27 Drug: NS 0.9% 1000 ml Route: IV; Rate: 1000 ml; Site: right antecubital; ak2 Point of Care Testing: Urine : 20:27 hCG Reading: Negative; Control Reading: Negative; ak2 Disposition: 07/27 05:12 Co-signature as Attending Physician, Levar Larios MD. [email or web address] Disposition: 07/26/20 21:58 Discharged to Home. Impression: Generalized abdominal pain. - Condition is Stable. - Discharge Instructions: Abdominal Pain, Adult. - Prescriptions for Bentyl 20 mg Oral Tablet - take 1 tablet by ORAL route every 6 hours As needed; 20 tablet. Pepcid 20 mg Oral Tablet - take 1 tablet by ORAL route every 12 hours for 10 days; 20 tablet. - Medication Reconciliation Form, Thank You Letter, Antibiotic Education, Prescription Opioid Use form. - Follow up: Brian Zhang MD; When: 2 - 3 days; Reason: Recheck today's complaints, Continuance of care, Re-evaluation by your physician. Signatures: Dispatcher [employer] EDMS Man Dunn PA PA kaylim Arnulfo Hamilton, STATEMENT CLERKS MANAGER STATEMENT CLERKS MANAGER pm1 Andre Pearl, RN RN rr5 Levar Larios MD MD 7 Aaron Unger ak2 Corrections: (The following items were deleted from the chart) 07/26 21:11 19:36 The symptoms are described as sharp, pm1 pm1 21:11 19:36 Modifying factors: The symptoms are alleviated by nothing, the symptoms are pm1 aggravated by nothing. pm1 22:06 21:58 07/26/2020 21:58 Discharged to Home. Impression: Generalized abdominal pain. ak2 Condition is Stable. Forms are Medication Reconciliation Form, Thank You Letter, Antibiotic Education, Prescription Opioid Use. Follow up: Brian Zhang; When: 2 - 3 days; Reason: Recheck today's complaints, Continuance of care, Re-evaluation by your physician. samantha
[2020-07-26 22:14] VITALS: TEMP 98.4
[2020-07-26 22:15] VITALS: BP 136/74; O2SAT 98
== END 2020-07-26 22:06 | disposition home or self-care (01) ==
LOC: ER 19:12
DX: R10.84 Generalized abdominal pain (principal); I10 Essential (primary) hypertension
CPT/HCPCS: 87088; 85025; 87086; 80048; 36415; 80076; 83690; 74177; Q9967; 81003; 81015

== ENCOUNTER 2022-10-07 11:33 | Emergency (ER) | payer OTHER ==
--- OUTSIDE RECORDS SUMMARY | 2022-10-07 11:36 | XMS REPORT | Continuity of Care Document ---
:1970 Author Organization [facility] t Address [address] [place] [address] [address] [place] [address] Care Team Providers Name Role Phone Umesh Jackson Attending Clinician Unavailable Corin Soriano Attending Clinician Unavailable ROMANA JOSEPH Attending Clinician Unavailable Corin Soriano Admitting Clinician Unavailable Payers Payer Name Policy Type Policy Number Effective Date Expiration Date S gwendolyn [facility] [id number] 2019 00:00:00 Blue Cross C1 [id number] Common Spiri t [facility] Blue Cross C1 [id number] Common Spiri t Blue [facility] Blue Cross C1 [id number] Common Spiri t [employer] [facility] Blue Cross C1 [id number] Common Spiri t [facility] Blue Cross C1 [id number] Common Spiri t Blue [facility] Problems Condition Condition Condition Status Onset Resolution Last Treating Co mments Source Name Details Category Date Date Treatment Clinician Date Sleep Sleep Problem Active Common apnea apnea [facility] - [facility] [id number] IUD Problem Active Common (intrauter [facility] device) in [facility] [id number] Type 2 Problem Active Common diabetes [facility] mellitus - [facility] without [facility], [facility] long-term current use of insulin [id number] Pure Problem Active Common hyperchole [facility] sterolemia [facility] [id number] Hot Problem Active Common flashes [facility] [id number] Essential Problem Active Comm on hypertensi [place] Allergies, Adverse Reactions, Alerts Allergy Allergy Status Severity Reaction(s) Onset Inactive Treating Comm ents Source Name Type Date Date Clinician NO KNOWN Drug Active Univers ALLERGIE Class ity of S [facility] Social History Social Habit Start Date Stop Date Quantity Comments Source History of Tobacco Use Co mmon [facility] Sex Assigned At Com mon [facility] Smoking Status Start Date Stop Date Source Never Smoker Common [facility] Medications Ordered Filled Start Stop Current Ordering Indication Dosage Frequency Signature Comments Components Source Medication Medication Date Date Medication? Clinician (SIG) Name Name Meloxicam Meloxicam 2020- No 1{table QD Meloxicam 7.5 MG 7.5 MG 08-07 t} 7.5 MG 00:00: 00:00 00 :00 Meloxicam Meloxicam 2020- No 1{table QD Meloxicam 7.5 MG 7.5 MG 08-07 t} 7.5 MG 00:00: 00:00 00 :00 Accu-Chek Accu-Chek 2019-0 Yes José Miguel as Common Isabel Isabel -16 Love directed Spirit [facility] SmartView 00:00: - C HI test strips test strips [facility] Accu-Chek Accu-Chek 2019-0 Yes José Miguel as Common Citlaly Citlaly 1-16 Love directed Spirit 00:00: - [facility] Lovastatin Lovastatin 2017-02 Yes José Miguel 1 tablet Common 0-10 Love with the Spirit 00:00: evening - [facility] MetFORMIN MetFORMIN 2017-02 Yes José Miguel 1 tablet Common HCl ER HCl ER 0-10 Love with Spirit 00:00: evening - [facility] Mirena (52 Mirena (52 2015-02 Yes José Miguel not Common MG) MG) 2-30 Love defined Spirit 00:00: - [facility] Potassium Potassium Yes José Miguel 1 tablet Common Gluconate Gluconate Love Spiri t - [facility] Ferrous Ferrous Yes José Miguel 1 tablet Co mmon Sulfate Sulfate Love Spirit [facility] Vitamin C Vitamin C Yes José Miguel 1 tablet Common Love [facility] Ibuprofen Ibuprofen Yes José Miguel not Co mmon Love defined Spirit [facility] Diazepam Diazepam Yes Jsoé Miguel not Comm on Love defined Spirit [facility] Singulair Singulair Yes José Miguel 1 tablet Common Love Spirit [facility] MethylPREDN MethylPREDN Yes José Miguel not Common ISolone ISolone Love defined Spirit [facility] Lisinopril Lisinopril Yes José Miguel not Common Love defined Spirit [facility] Acetaminoph Acetaminoph Yes José Miguel not Common en-Codeine en-Codeine Love defined Spirit #3 #3 - [facility] Vitamin D-3 Vitamin D-3 Yes José Miguel 1 capsule Common Love [facility] Calcium + Calcium + Yes José Miguel not Co mmon D3 D3 Love defined [facility] Zestoretic Zestoretic Yes José Miguel 1 tablet Common Love [facility] Amlodipine Amlodipine Yes José Miguel not Common Besylate Besylate Love defined Spir it [facility] Magnesium Magnesium Yes José Miguel 1 tablet Common Love with a Spirit meal [facility] Fish Oil Fish Oil Yes José Miguel 1 capsule Common Love [facility] Ibuprofen Ibuprofen No Ibuprofen amLODIPine amLODIPine No amLODIPine Besylate Besylate Besylate methylPREDN methylPREDN No methylPRED ISolone ISolone NISolone Acetaminoph Acetaminoph No Acetaminop en-Codeine en-Codeine hen-Codein #3 #3 e #3 diazePAM diazePAM No diazePAM Lisinopril Lisinopril No Lisinopril Ibuprofen Ibuprofen No Ibuprofen amLODIPine amLODIPine No amLODIPine Besylate Besylate Besylate methylPREDN methylPREDN No methylPRED ISolone ISolone NISolone Acetaminoph Acetaminoph No Acetaminop en-Codeine en-Codeine hen-Codein #3 #3 e #3 diazePAM diazePAM No diazePAM Lisinopril Lisinopril No Lisinopril Ibuprofen Ibuprofen No Ibuprofen amLODIPine amLODIPine No amLODIPine Besylate Besylate Besylate methylPREDN methylPREDN No methylPRED ISolone ISolone NISolone Acetaminoph Acetaminoph No Acetaminop en-Codeine en-Codeine hen-Codein #3 #3 e #3 diazePAM diazePAM No diazePAM Lisinopril Lisinopril No Lisinopril Ibuprofen Ibuprofen No Ibuprofen amLODIPine amLODIPine No amLODIPine Besylate Besylate Besylate Acetaminoph Acetaminoph No Acetaminop en-Codeine en-Codeine hen-Codein #3 #3 e #3 diazePAM diazePAM No diazePAM Lisinopril Lisinopril No Lisinopril methylPREDN methylPREDN No methylPRED ISolone ISolone NISolone Ibuprofen Ibuprofen No Ibuprofen amLODIPine amLODIPine No amLODIPine Besylate Besylate Besylate Acetaminoph Acetaminoph No Acetaminop en-Codeine en-Codeine hen-Codein #3 #3 e #3 diazePAM diazePAM No diazePAM Lisinopril Lisinopril No Lisinopril methylPREDN methylPREDN No methylPRED ISolone ISolone NISolone Vital Signs Vital Name Observation Time Observation Value Comments Source height 2020-08-07 11:00:00 58 [in_i] [facility] weight 2020-08-07 11:00:00 151 [lb_av] [facility] temperature 2020-08-07 11:00:00 97.7 [degF] Common [facility] bmi 2020-08-07 11:00:00 31.56 kg/m2 [facility] blood pressure 2020-08-07 11:00:00 152 mm[Hg] Common [facility] - systolic [facility] blood pressure 2020-08-07 11:00:00 90 mm[Hg] Common [facility] - diastolic [facility] height 2020-07-28 11:00:00 58 [in_i] [facility] weight 2020-07-28 11:00:00 151.6 [lb_av] Common [facility] - [facility] bmi 2020-07-28 11:00:00 31.68 kg/m2 Common S pirit [facility] blood pressure 2020-07-28 11:00:00 122 mm[Hg] Common [facility] - systolic [facility] blood pressure 2020-07-28 11:00:00 78 mm[Hg] Common [facility] - diastolic [facility] Procedures This patient has no known procedures. Encounters Start End Encounter Admission Attending Care Care Encounter Source Date/Time Date/Time Type Type Clinicians Facility Department ID 2021-03-04 Outpatient Jackson, STLMLC STLMLC [id number] Common 13:21:31 Umesh [id number] [facility] 2021-03-04 Outpatient Jackson, STLMLC STLMLC [id number] Common 13:16:58 Umesh [id number] [facility] 2021-03-04 Outpatient Jackson, STLMLC STLMLC [id number] Common 13:16:03 Umesh [id number] [facility] 2022-03-02 2022-03-02 Outpatient SYED [facility] [id number] [facility] 10:10:00 10:10:00 Corin Lloyd [facility] 2020-09-09 2020-09-09 Outpatient Sherry JOSEPH [facility] [id number] 18:00:00 18:00:00 ROMANA erickson [facility] 2020-08-07 2020-08-07 (TEL) STLMLC STLMLC [id number] Co mmon 00:00:00 00:00:00 [facility] 2020-08-07 2020-08-07 OFFICE STLMLC STLMLC [id number] Co mmon 00:00:00 00:00:[address] 2020-07-30 2020-07-30 (TEL) STLMLC STLMLC [id number] Co mmon 00:00:00 00:00:00 [facility] 2020-07-29 2020-07-29 (TEL) STLMLC STLMLC [id number] Co mmon 00:00:00 00:00:00 [facility] 2020-07-28 2020-07-28 OFFICE STLMLC STLMLC [id number] Co mmon 00:00:00 00:00:00 VISIT [facility] 2018-11-14 2018-11-14 Outpatient Blayne Stewart [id number] Common 13:27:00 13:27:00 [facility] 2018-11-02 2018-11-02 Outpatient Blayne Stewart [id number] Common 10:30:00 10:30:00 [facility] Results Test Description Test Time Test Comments Results Result Comments Source MRI Knee Left Wo Cont MRI Knee Left Wo Cont
[2022-10-07 12:20] LABS: Absolute Lymphocytes (CBC) 2.8 K/uL (0.7-4.9); Hematocrit 40.4 % (36.0-45.0); Lymphocytes % 37.4 % (15.3-44.8); MCV 80.2 fL (80-100); MPV 9.7 fL (7.6-11.3); Platelets 270 thou/uL (152-406); RBC Red Blood Cell Count 5.03 M/uL (3.86-4.86)
[2022-10-07 12:24] LABS: Protime INR 0.95
--- NOTE | 2022-10-07 12:24 | RAD REPORT ---
EXAM DESCRIPTION: CT - Head Brain Wo Cont - 10/07/2022 12:12 pm CLINICAL HISTORY: Vertigo COMPARISON: 2019 TECHNIQUE: Computed axial tomography of the head was obtained. IV contrast was not requested. All CT scans are performed using dose optimization technique as appropriate and may include automated exposure control or mA/KV adjustment according to patient size. FINDINGS: An intracranial bleed is not seen The ventricles are normal in caliber No extra-axial fluid collection is noted. A punctate calcification left parietal lobe Fluid within the sinuses/ mastoids is not seen. IMPRESSION: No acute intracranial abnormality is seen If patient's symptoms persist MRI of the brain would be recommended
[2022-10-07 12:29] LABS: Potassium 3.4 mEq/L (3.5-5.1)
[2022-10-07] MEDS ORDERED: NA CHLORIDE 0.9% 500 ML ONE (12:31)
[2022-10-07] MEDS ORDERED: MECLIZINE HCL 12.5 MG TAB ONE (12:31)
--- NOTE | 2022-10-07 12:48 | ER ---
Nurse's Notes [facility] Name: Elsa Hunter Age: 52 yrs Sex: Female : 1970 Arrival Date: 10/07/2022 Time: 11:33 Bed 11 Private MD: Milan Jackson C Diagnosis: Dizziness and giddiness;Vertigo Presentation: 10/07 11:43 Chief complaint: Patient states: Dizziness for 3 days. Off/on for [address] remigio Lyn's note for further details. Coronavirus screen: Client denies travel out of the [place] in the last 14 days. At this time, the client does not indicate any symptoms associated with coronavirus-19. Ebola Screen: Patient denies travel to an Ebola-affected area in the 21 days before illness onset. Initial Sepsis Screen: Does the patient meet any 2 criteria? No. Patient's initial sepsis screen is negative. Does the patient have a suspected source of infection? No. Patient's initial sepsis screen is negative. Risk Assessment: Do you want to hurt yourself or someone else? Patient reports no desire to harm self or others. Onset of symptoms was October 05, 2022. 11:43 Method Of Arrival: Ambulatory [facility] 11:43 Acuity: ANASTACIA 3 ll1 TRANSIT PLANNER: 12:29 LMP N/A - mb9 Historical: - Allergies: 11:43 No Known Allergies; ll1 - PMHx: 11:43 GERD; High Cholesterol; Hypertension; ll1 - Immunization history:: Adult Immunizations up to date. - Social history:: Smoking status: Patient denies any tobacco usage or history of. - Family history:: not pertinent. - Hospitalizations: : No recent hospitalization is reported. Screenin:29 [facility] ED Fall Risk Assessment (Adult) History of falling in the last 3 months, mb9 including since admission No falls in past 3 months (0 pts) Confusion or Disorientation No (0 pts) Intoxicated or Sedated No (0 pts) Impaired Gait No (0 pts) Mobility Assist Device Used No (0 pt) Altered Elimination No (0 pt) Score/Fall Risk Level 0 - 2 = Low Risk Oriented to surroundings, Maintained a safe environment, Educated pt \T\ family on fall prevention, incl call for assistance when getting out of bed. Abuse screen: Denies threats or abuse. Nutritional screening: No deficits noted. Tuberculosis screening: No symptoms or risk factors identified. Assessment: 12:28 General: Appears in no apparent distress. Behavior is cooperative. Pain: Denies pain. mb9 Neuro: Stewart Agitation-Sedation Scale (RASS): 0 - Alert and Calm Level of Consciousness is awake, alert, obeys commands, Oriented to person, place, time, situation, Appropriate for age Pupils are PERRLA, Reports dizziness, when ambulating. Cardiovascular: Patient's skin is warm and dry. Rhythm is sinus bradycardia. Cardiovascular: Heart tones S1 S2 present. Respiratory: Airway is patent Respiratory effort is even, unlabored, Respiratory pattern is regular, symmetrical, Breath sounds are clear bilaterally. GI: Abdomen is round non-distended, Bowel sounds present X 4 quads. Abd is soft and non tender X 4 quads. : No signs and/or symptoms were reported regarding the genitourinary system. Derm: Skin is pink, warm \T\ dry. Musculoskeletal: Range of motion: intact in all extremities. 12:49 Reassessment: discharge pending fluid completion. mb9 13:14 Reassessment: Patient and/or family updated on plan of care and expected duration. Pain mb9 level reassessed. Patient is alert, oriented x 3, equal unlabored respirations, skin warm/dry/pink. Patient states feeling better. Patient states symptoms have improved. Vital Signs: 11:43 BP 155 / 82; Pulse 60; Resp 16; Temp 98.1; Pulse Ox 98% ; ll1 12:29 BP 148 / 86; Pulse 55; Resp 16; Pulse Ox 100% on R/A; mb9 13:14 BP 135 / 81; Pulse 58; Resp 16; Pulse Ox 99% on R/A; Pain 0/10; mb9 13:14 Pain Scale: Adult mb9 ED Course: 11:36 Patient arrived in ED. rg4 11:36 Milan Jackson MD is Private Physician. rg4 11:38 Dionisio Lyn MD is Attending Physician. rn 11:44 Triage completed. ll1 11:44 Arm band placed on. ll1 12:06 Protime (+inr) Sent. bc6 12:06 Ptt, Activated Sent. bc6 12:06 Basic Metabolic Panel Sent. bc6 12:06 CBC with Diff Sent. bc6 12:06 Inserted saline lock: 22 gauge in left upper arm, using aseptic technique. Blood bc6 collected. 12:13 CT Head Brain wo Cont In Process Unspecified. EDMS 12:14 Cristina Kern, RN is Primary Nurse. mb9 12:29 Bed in low position. Call light in reach. Side rails up X 1. Client placed on mb9 continuous cardiac and pulse oximetry monitoring. NIBP monitoring applied. 12:29 EKG done, by ED staff, reviewed by Dionisio Lyn MD. mb9 12:29 No provider procedures requiring assistance completed. mb9 12:47 Jaron Schmitz MD is Referral Physician. rn 13:14 IV discontinued, intact, bleeding controlled, No redness/swelling at site. Pressure mb9 dressing applied. Administered Medications: 12:27 Drug: Meclizine PO 50 mg Route: PO; mb9 13:06 Follow up: Response: No adverse reaction mb9 12:27 Drug: NS 0.9% IV 500 ml Route: IV; Rate: bolus; Site: left upper arm; mb9 13:05 Follow up: Response: No adverse reaction; IV Status: Completed infusion mb9 Medication: 12:29 VIS not applicable for this client. mb9 Outcome: 12:47 Discharge ordered by . rn 13:14 Discharged to home ambulatory, with family. mb9 13:14 Condition: stable 13:14 Discharge instructions given to patient, Instructed on discharge instructions, follow up and referral plans. Demonstrated understanding of instructions, follow-up care, medications, Prescriptions given X 1. 13:15 Patient left the ED. mb9 Signatures: Dispatcher [employer] EDMS Dionisio Lyn MD MD rn Garcia, Rubi rg4 Cristi Pleitez RN RN ll1 Cristina Kern, RN RN mb9 Nancy Rivas bc6 Corrections: (The following items were deleted from the chart) 11:44 11:43 Chief complaint: Patient states: Dizziness, see Dr. Lyn's note for further ll1 details ll1
--- NOTE | 2022-10-07 12:48 | EDPHYS ---
Physician Documentation [facility] Name: Elsa Hunter Age: 52 yrs Sex: Female : 1970 Arrival Date: 10/07/2022 Time: 11:33 Bed 11 Private MD: Milan Jackson C ED Physician Dionisio Lyn HPI: 10/07 11:48 This 52 yrs old Female presents to ER via Ambulatory with complaints of rn Dizziness. 11:48 The patient presents with feeling off balance. Onset: The symptoms/episode rn began/occurred 6 month(s) ago. Modifying factors: The symptoms are alleviated by holding head still, the symptoms are aggravated by movement of head. Severity of symptoms: At their worst the symptoms were moderate in the emergency department the symptoms have improved. The patient has experienced similar episodes in the past. Patient reports intermittent dizzy episodes for the last 6 months, has been diagnosed with vertigo in the past, feels similar, but worse over the last 3 days. Denies any head injury. No fever. No focal neurological deficits. No medication changes. Has been seen in Dr. Jackson recently with negative echo negative carotid ultrasound. Better when laying down and not moving head.. 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 - Social history:: Smoking status: Patient denies any tobacco usage or history of. - Family history:: not pertinent. - Hospitalizations: : No recent hospitalization is reported. ROS: 11:48 Constitutional: Negative for fever, chills, and weight loss, Neck: Negative for injury, rn pain, and swelling, Cardiovascular: Negative for chest pain, palpitations, and edema, Respiratory: Negative for shortness of breath, cough, wheezing, and pleuritic chest pain, Abdomen/GI: Negative for abdominal pain, nausea, vomiting, diarrhea, and constipation, Back: Negative for injury and pain, MS/Extremity: Negative for injury and deformity, Skin: Negative for injury, rash, and discoloration, Neuro: Negative for weakness, numbness, tingling, and seizure, positive for posterior headache Exam: 11:48 Constitutional: This is a well developed, well nourished patient who is awake, alert, rn and in no acute distress. Patient ambulatory to triage alongside me without distress or requiring assistance, no ataxia noticed Head/Face: Normocephalic, atraumatic. Eyes: Pupils equal round and reactive to light, extra-ocular motions intact. Cardiovascular: Regular rate and rhythm. No pulse deficits. Respiratory: No increased work of breathing, no retractions or nasal flaring. Skin: Warm, dry MS/ Extremity: Pulses equal, no cyanosis. Neuro: Awake and alert, GCS 15, oriented to person, place, time, and situation. Cranial nerves II-XII grossly intact. Motor strength 5/5 in all extremities. Sensory grossly intact. Cerebellar exam normal. Normal gait. 12:38 ECG was reviewed by the Attending Physician. rn Vital Signs: 11:43 BP 155 / 82; Pulse 60; Resp 16; Temp 98.1; Pulse Ox 98% ; ll1 12:29 BP 148 / 86; Pulse 55; Resp 16; Pulse Ox 100% on R/A; mb9 13:14 BP 135 / 81; Pulse 58; Resp 16; Pulse Ox 99% on R/A; Pain 0/10; mb9 13:14 Pain Scale: Adult mb9 MDM: 11:38 Patient medically screened. rn 12:46 Differential diagnosis: cardiac arrhythmia, generalized weakness, hypovolemia, rn idiopathic dizziness, near-syncope, TIA, vertigo. Data reviewed: vital signs, nurses notes, lab test result(s), EKG, radiologic studies, CT scan, and as a result, I will discharge patient. Counseling: I had a detailed discussion with the patient and/or guardian regarding the historical points, exam findings, and any diagnostic results supporting the discharge/admit diagnosis, lab results, radiology results, the need for outpatient follow up, to return to the emergency department if symptoms worsen or persist or if there are any questions or concerns that arise at home. Response to treatment: the patient's symptoms have markedly improved after treatment, and as a result, I will discharge patient. Special discussion: I discussed with the patient/guardian in detail that at this point there is no indication for admission to the hospital. It is understood, however, that if the symptoms persist or worsen the patient needs to return immediately for re-evaluation. Based on the history and exam findings, there is no indication for further emergent testing or inpatient evaluation. I discussed with the patient/guardian the need to see the neurologist for further evaluation of the symptoms. I discussed with the patient/guardian the need to see the primary care provider for further evaluation of the symptoms. ED course: No acute findings on work-up today. CT head negative. Normal neuro exam. Feels much better after meclizine and ambulatory to bathroom. Longstanding symptoms for at least 6 months, given lack of findings here recommend neurology follow-up appointment. Will DC home with meclizine and return precautions given. 10/07 11:47 Order name: CBC with Diff; Complete Time: 12:38 rn 10/07 11:47 Order name: Basic Metabolic Panel; Complete Time: 12:38 rn 10/07 11:47 Order name: Protime (+inr); Complete Time: 12:38 rn 10/07 11:47 Order name: Ptt, Activated; Complete Time: 12:38 rn 10/07 11:47 Order name: CT Head Brain wo Cont; Complete Time: 12:38 rn 10/07 11:47 Order name: EKG; Complete Time: 11:48 rn 10/07 11:47 Order name: IV Start; Complete Time: 12:06 rn 10/07 11:47 Order name: EKG - Nurse/Tech; Complete Time: 12:27 rn EC:38 Rate is 51 beats/min. Rhythm is regular. QRS [place] is Normal. PA interval is normal. QRS rn interval is normal. QT interval is normal. No Q waves. T waves are Normal. No ST changes noted. Clinical impression: Sinus bradycardia. Interpreted by me. Reviewed by me. Administered Medications: 12:27 Drug: Meclizine PO 50 mg Route: PO; mb9 13:06 Follow up: Response: No adverse reaction mb9 12:27 Drug: NS 0.9% IV 500 ml Route: IV; Rate: bolus; Site: left upper arm; mb9 13:05 Follow up: Response: No adverse reaction; IV Status: Completed infusion mb9 Disposition Summary: 10/07/22 12:47 Discharge Ordered Location: Home rn Problem: an ongoing problem rn Symptoms: have improved rn Condition: Stable rn Diagnosis - Dizziness and giddiness rn - Vertigo rn Followup: rn - With: Jaron Schmitz MD - When: As needed - Reason: Recheck today's complaints, Re-evaluation by your physician Discharge Instructions: - Dizziness rn - Vertigo rn - Discharge Summary Sheet mb9 Forms: - Medication Reconciliation Form rn - Thank You Letter rn - Antibiotic rn hematology - Prescription Opioid Use rn - Patient Portal Instructions rn - Leadership Thank You Letter rn - Work release form mb9 Prescriptions: - Meclizine 25 mg Oral Tablet - take 1 tablet by ORAL route every 8 hours As needed; 30 tablet; Refills: 0, rn Product Selection Permitted Signatures: Dispatcher [employer] Dionisio Orona MD MD rn Lewis, Lynsay, RN RN 1 Cristina Kern RN RN mb9
[2022-10-07 13:53] VITALS: TEMP 98.1
[2022-10-07 14:04] VITALS: BP 135/81; O2SAT 99
--- NOTE | 2022-10-08 15:24 | EKG ---
Test Date: 2022-10-07 Test Time: 12:24:21 Transfer Specialist: MB MEASUREMENT RESULTS: Intervals: Rate: 51 TN: 144 QRSD: 76 QT: 440 QTc: 405 [place]: P: 33 TN: 144 QRS: 46 T: 23 INTERPRETIVE STATEMENTS: Sinus bradycardia Low voltage QRS Cannot rule out Anterior infarct, age undetermined Abnormal ECG Compared to ECG 05/22/2020 13:39:42 Low QRS voltage now present Myocardial infarct finding still present Electronically Signed On 10-08-22 15:21:29 CDT by Morro Herron
== END 2022-10-07 13:15 | disposition home or self-care (01) ==
LOC: ER 11:33
DX: R42 Dizziness and giddiness (principal); I10 Essential (primary) hypertension
CPT/HCPCS: 93005; 85025; 80048; 36415; 85610; 85730; 70450; 96360; 99285; J8597; J7040

== ENCOUNTER 2023-05-29 16:08 | Emergency (ER) | payer OTHER ==
--- OUTSIDE RECORDS SUMMARY | 2023-05-29 16:10 | XMS REPORT | Continuity of Care Document ---
Author Name Unknown Address [address] [place] [address] [facility] thconnect Address [address] [place] [address] Care Team Providers Care Geophysical E Logger Name Role Phone Dayanna Angelina RAMIREZ Primary Care Physician [phone] Umesh Jackson Attending Clinician Unavailable JOSE RODGERS Attending Clinician Jose Mark MD Attending Clinician SHAKIR_GCBZW_Vishal_S Attending Clinician Corin Rose Attending Clinician Dolores vailable ROMANA JOSEPH Attending Clinician Unavailable SHAKIR_GCBZW_Vishal_S Admitting Clinician Corin Rose Admitting Clinician Dolores vailable Payers Payer Name Policy Type Policy Number Effective Date Expirati on Date Source [id number] 90 DE[employer]REE AND BENEFITS [id number] 2022 00:00:00 90 DEGREE BENEFITS [id number] 2022 00:00:00 [facility] [id number] 2019 00:00:00 [place] [address] [id number] [facility] Blue Cross [place] [address] [id number] [facility] Blue Cross Blue [employer] of [place] C1 [id number] [facility] Blue Cross [employer] of [place] C1 [id number] [facility] Blue Cross [employer] of [place] C1 [id number] [facility] Problems Condition Name Condition Details Condition Category Status Onset Date Resolution Date Last Treatment Date Treating Clinician Comments Source [id number] IUD (intrauter ine device) in place Problem Active [facility] [id number] Type 2 diabetes mellitus without complicati on, without long-term current use of insulin Problem Active [facility] [id number] Pure hyperchole sterolemia Problem Active [facility] [id number] Hot flashes Problem Active [facility] [id number] Essential hypertensi on Problem Active [facility] Sleep apnea Sleep apnea Problem Active [facility] Allergies, Adverse Reactions, Alerts Allergy Name Allergy Type Status Severity Reaction(s) Onset Date Inactive Date Treating Clinician Comments Source NO KNOWN ALLERGIE S Drug Class Active [facility] Social History Social Habit Start Date Stop Date Quantity Comments Source Sexual orientation [facility] History of Tobacco Use [facility] Sex Assigned At 1970 00:00:00 1970 00:00:00 [facility] Smoking Status Start Date Stop Date Source Tobacco smoking consumption unknown [facility] Never Smoker [facility] Medications Ordered Medication Name Filled Medication Name Start Date Stop Date Current Medication? Ordering Clinician Indication Dosage Frequency Signature (SIG) Comments Components Source Meloxicam 7.5 MG Meloxicam 7.5 MG 08-07 00:00: 00 09-06 00:00 :00 No 1{table t} QD Meloxicam 7.5 MG Accu-Chek Isabel SmartView test strips Accu-Chek Isabel SmartView test strips 02-22 00:00: 00 Yes José Miguel Love as directed [facility] Accu-Chek Citlaly Accu-Chek Citlaly 2019-0 1-16 00:00: 00 Yes José Miguel Love as directed [facility] Lovastatin Lovastatin 2017-02 00:00: 00 Yes José Miguel Love 1 tablet with the evening meal [facility] MetFORMIN HCl ER MetFORMIN HCl ER 2017-02 0 00:00: 00 Yes José Miguel Love 1 tablet with evening meal [facility] Mirena (52 MG) Mirena (52 MG) 2015-02 00:00: 00 Yes José Miguel Love not defined [facility] Potassium Gluconate Potassium Gluconate Yes José Miguel Love 1 tablet [facility] Ferrous Sulfate Ferrous Sulfate Yes José Miguel Love 1 tablet [facility] Vitamin C Vitamin C Yes José Miguel Love 1 tablet [facility] Ibuprofen Ibuprofen Yes José Miguel Love not defined [facility] Diazepam Diazepam Yes José Miguel Love not defined [facility] Singulair Singulair Yes José Miguel Love 1 tablet [facility] MethylPREDN ISolone MethylPREDN ISolone Yes José Miguel Love not defined [facility] Lisinopril Lisinopril Yes José Miguel Love not defined [facility] Acetaminoph en-Codeine #3 Acetaminoph en-Codeine #3 Yes José Miguel Love not defined [facility] Vitamin D-3 Vitamin D-3 Yes Gato Love 1 capsule [facility] Calcium + D3 Calcium + D3 Yes José Miguel Love not defined [facility] Zestoretic Zestoretic Yes José Miguel Love 1 tablet [facility] Amlodipine Besylate Amlodipine Besylate Yes José Miguel Love not defined [facility] Magnesium Magnesium Yes José Miguel Love 1 tablet with a meal [facility] Fish Oil Fish Oil Yes José Miguel Love 1 capsule [facility] Ibuprofen Ibuprofen No Ibuprofen Ibuprofen Ibuprofen No Ibuprofen Vital Signs Vital Name Observation Time Observation Value Comments S ource height 2020-08-07 11:00:00 58 [in_i] Commo n [facility] weight 2020-08-07 11:00:00 151 [lb_av] Comm on [facility] temperature 2020-08-07 11:00:00 97.7 [degF] Com mon [facility] bmi 2020-08-07 11:00:00 31.56 kg/m2 Comm on [facility] blood pressure systolic 2020-08-07 11:00:00 152 mm[Hg] [facility] blood pressure diastolic 2020-08-07 11:00:00 90 mm[Hg] Common [facility] height 2020-07-28 11:00:00 58 [in_i] Commo n [facility] weight 2020-07-28 11:00:00 151.6 [lb_av] Co mmon [facility] bmi 2020-07-28 11:00:00 31.68 kg/m2 Comm on [facility] blood pressure systolic 2020-07-28 11:00:00 122 mm[Hg] Common [facility] blood pressure diastolic 2020-07-28 11:00:00 78 mm[Hg] [facility] Encounters Start Date/Time End Date/Time Encounter Type Admission Type Attending [facility] Care Facility Care Department Encounter ID Source 2021-03-04 13:21:31 Outpatient Umesh Jackson [facility] [id number] [facility] 2021-03-04 13:16:58 Outpatient Manuel Umesh [facility] [id number] [facility] 2021-03-04 13:16:03 Outpatient Jac Jacksonesh [facility] [id number] [facility] 2023-05-27 11:49:01 2023-05-27 23:59:00 Outpatient JOSE KERN [facility] [id number] [facility] 2023-05-27 11:49:01 2023-05-27 23:59:00 Hospital Encounter Jose Rodgers [facility] [id number] [facility] 2022-12-29 00:00:00 2022-12-29 00:00:00 Outpatient GC_GCBZW_Ka diyala_S PRIV PRIV [id number] [facility] 2022-12-07 00:00:00 2022-12-07 00:00:00 Outpatient GC_GCBZW_Ka diyala_S PRIV PRIV [id number] [facility] 2022-12-07 00:00:00 2022-12-07 00:00:00 Outpatient GC_GCBZW_Ka diyala_S PRIV PRIV [id number] [facility] 2022-03-02 10:10:00 2022-03-02 10:10:00 Outpatient Corin Brizuela [facility] [id number] [facility] 2020-09-09 18:00:00 2020-09-09 19:24:48 Outpatient ROMANA PEPE [facility] [id number] [facility] 2020-08-07 00:00:00 2020-08-07 00:00:00 (TEL) STLMLC STLMLC [id number] [facility] 2020-08-07 00:00:00 2020-08-07 00:00:00 OFFICE VISIT ESTAB PT LEVEL 4 STLMLC STLMLC [id number] [facility] 2020-07-30 00:00:00 2020-07-30 00:00:00 (TEL) STLMLC STLMLC [id number] [facility] 2020-07-29 00:00:00 2020-07-29 00:00:00 (TEL) STLMLC STLMLC [id number] [facility] 2020-07-28 00:00:00 2020-07-28 00:00:00 OFFICE VISIT ESTAB PT LEVEL 4 STLMLC STLMLC [id number] [facility] 2018-11-14 13:27:00 2018-11-14 13:27:00 [facility] [id number] [facility] 2018-11-02 10:30:00 2018-11-02 10:30:00 [facility] [id number] [facility] Results Test Description Test Time Test Comments Results Result Co mments Source MRI Knee Left Wo Cont MRI Kn ee Left Wo Cont
[2023-05-29 17:32] LABS: Absolute Basophils 0.1 K/uL (0-0.5); Absolute Eosinophils 0.2 K/uL (0-0.5); Absolute Lymphocytes (CBC) 3.4 K/uL (0.7-4.9); Absolute Monocytes 0.5 K/uL (0.1-1.3); Absolute Neutrophil 3.4 K/uL (1.8-8.0); Basophils % 0.7 % (0-1.3); Eosinophils % 2.4 % (0-4.4); Hematocrit 37.6 % (36.0-45.0); Hemoglobin 11.9 g/dL (12.0-15.0); Lymphocytes % 45.6 % (15.3-44.8); MCHC 31.6 g/dL (32.0-36.0); MCV 82.2 fL (80-100); MPV 10.1 fL (7.6-11.3); Monocytes % 6.3 % (3.3-12.3); Platelets 273 thou/uL (152-406); RBC Red Blood Cell Count 4.57 M/uL (3.86-4.86); Red Cell Distribution Width 14.2 % (12.1-15.2)
[2023-05-29 17:51] LABS: Anion Gap 7.6 mEq/L (5.0-15.0); Magnesium 2.3 mg/dL (1.6-2.4); Potassium 3.6 mEq/L (3.5-5.1); Troponin High Sensitivity 19.6 pg/mL (<58.9)
--- NOTE | 2023-05-29 17:57 | RAD REPORT ---
EXAM DESCRIPTION: RAD - Chest Single View - 05/29/2023 5:45 pm CLINICAL HISTORY: htn COMPARISON: No comparisons FINDINGS: Lines: None. Lungs: No evidence of edema or pneumonia. Pleural: No significant pleural effusions or pneumothorax. Cardiac: The heart size is within normal limits. Mediastinum: Within normal limits. Bones: No acute fractures. Other: None IMPRESSION: No acute cardiopulmonary disease.
--- NOTE | 2023-05-29 18:07 | RAD REPORT ---
EXAM DESCRIPTION: CT - Head Brain Wo Cont - 05/29/2023 6:01 pm CLINICAL HISTORY: Dizziness;Headache COMPARISON: Head Brain Wo Cont dated 10/07/2022; Head Brain Wo Cont dated 10/16/2018 TECHNIQUE: All CT scans are performed using dose optimization technique as appropriate and may inclu de automated exposure control or mA/KV adjustment according to patient size. FINDINGS: No intracranial hemorrhage, hydrocephalus or extra-axial fluid collection.No areas of brai n edema or evidence of midline shift. The paranasal sinuses and mastoids are clear. The calvarium is intact. IMPRESSION: No acute intracranial abnormality.
--- NOTE | 2023-05-29 19:15 | EDPHYS ---
Physician Documentation [facility] Name: Elsa Hunter Age: 53 yrs Sex: Female : 1970 Arrival Date: 05/29/2023 Time: 16:08 Bed 16 Private MD: Milan Jackson C ED Physician Jose Frederick HPI: 05/28 18:29 This 53 yrs old Female presents to ER via Ambulatory with complaints of High kb Blood Pressure, Redness of Eye. 18:29 Pt is a 53 year old female who presents for fluctuating blood pressure, headache and kb redness to eye. States her blood pressure has been fluctuating for one week. States she takes 3 blood pressure medications and if she takes them then her bp is good, but she didn't take them all on some days and her blood pressure would be high. States she came in because the redness of her eye scared her. Denies visual deficits or eye pain. . Historical: - Allergies: 16:11 No Known Allergies; ll1 - PMHx: 16:11 GERD; High Cholesterol; Hypertension; ll1 - Immunization history:: Adult Immunizations up to date. - Infectious Disease History:: Denies. - Social history:: Smoking status: Patient denies any tobacco usage or history of. ROS: 17:57 Constitutional: As per HPI kb Exam: 17:57 Constitutional: This is a well developed, well nourished patient who is awake, alert, kb and in no acute distress. Head/Face: Normocephalic, atraumatic. ENT: Moist Mucous membranes Cardiovascular: Regular rate Respiratory: Respirations even and unlabored. No increased work of breathing. Talking in full sentences Abdomen/GI: Soft, non-tender. No distention Skin: Warm, dry with normal turgor. Normal color. MS/ Extremity: Pulses equal, no cyanosis. Neurovascular intact. Full, normal range of motion. Neuro: Awake and alert, GCS 15, oriented to person, place, time, and situation. Moves all extremities. Normal gait. 17:57 Eyes: Conjunctiva: subconjunctival hemorrhage(s), seen in the left eye, at 9 o'clock, 17:57 ECG was reviewed by the Attending Physician. Vital Signs: 16:32 Pulse 50; Resp 17; Temp 97.9; Pulse Ox 96% ; Weight 68.95 kg; Height 4 ft. 9 in. ; Pain ll1 5/10; 16:32 BP 204 / 69; ll1 17:31 BP 182 / 61; Pulse 45; Resp 18; Pulse Ox 99% ; cp4 18:30 BP 180 / 72; Pulse 44; Resp 18; Pulse Ox 98% ; cp4 19:25 BP 186 / 68; Pulse 51; Resp 18; Pulse Ox 98% ; cp4 16:32 Body Mass Index 32.89 (68.95 kg, 144.78 cm) ll1 16:32 Pain Scale: Adult ll1 MDM: 16:56 Patient medically screened. kb 18:31 Differential diagnosis: hypertensive crisis, Malignant HTN. Data reviewed: vital signs, kb nurses notes. Counseling: I had a detailed discussion with the patient and/or guardian regarding the historical points, exam findings, and any diagnostic results supporting the discharge/admit diagnosis, lab results, radiology results, the need for outpatient follow up, a family practitioner, to return to the emergency department if symptoms worsen or persist or if there are any questions or concerns that arise at home. ED course: Educated to keep blood pressure log and follow up with Dr Jackson or Germaine for continued management. Educated to follow up with ophthalmology for subconjunctival hemorrhage. Patient denies chest pain or shortness of breath.. 20:43 ED course: At bedside to reassess patient. Patient remains awake, alert and at baseline kb mentation. Patient appears stable. Patient exhibits no visible signs of distress. Patient respirations even and unlabored. I discussed patient's diagnosis, differential diagnosis, expected course of illness, at home recommendations and strict return precautions. I advised patient to follow-up with PCP in 2 to 3 days. I explained all diagnostic results with the patient and answered all questions that patient had regarding the most likely diagnosis. I emphasized the need for close outpatient follow-up and care from primary care provider/specialist and went through careful and detailed return precautions with patient. Patient expressed full understanding of such and agrees with plan for discharge today. Feel patient is stable and appropriate for discharge and ongoing management of condition at home at this time.. 05/28 17:15 Order name: Basic Metabolic Panel; Complete Time: 17:56 kb 05/28 17:15 Order name: CBC with Diff; Complete Time: 17:40 kb 05/28 17:15 Order name: Magnesium; Complete Time: 17:56 kb 05/28 17:15 Order name: Troponin HS; Complete Time: 17:56 kb 05/28 17:15 Order name: XRAY Chest (1 view); Complete Time: 17:58 kb 05/28 17:15 Order name: CT Head Brain wo Cont; Complete Time: 18:19 kb 05/28 17:15 Order name: EKG; Complete Time: 17:16 kb 05/28 17:15 Order name: Cardiac monitoring; Complete Time: 17:25 kb 05/28 17:15 Order name: EKG - Nurse/Tech; Complete Time: 17:53 kb 05/28 17:15 Order name: IV Saline Lock; Complete Time: 17:25 kb 05/28 17:15 Order name: Labs collected and sent; Complete Time: 17:25 kb 05/28 17:15 Order name: O2 Per Protocol; Complete Time: 17:25 kb 05/28 17:15 Order name: O2 Sat Monitoring; Complete Time: 17:25 kb EC:57 Rate is 44 beats/min. Rhythm is regular. QRS [place] is Normal. DE interval is normal at kb 166 msec. QRS interval is normal at 78 msec. QT interval is normal at 396 msec. Administered Medications: No medications were administered Disposition: 19:42 Co-signature as Attending Physician, Jose Frederick MD I reviewed the patient's care rt provided by the Advanced Practice Provider and agree with the diagnosis and treatment plan. Disposition Summary: 05/29/23 19:14 Discharge Ordered Notes: Location: Home kb Condition: Stable kb Diagnosis - Essential (primary) hypertension kb - Subconjunctival hemorrhage kb Followup: kb - With: Emergency Department - When: As needed - Reason: Worsening of condition Followup: kb - With: Mlian Jackson MD - When: 2 - 3 days - Reason: Recheck today's complaints, Continuance of care, Re-evaluation by your physician Discharge Instructions: - Discharge Summary Sheet kb - Subconjunctival Hemorrhage kb - Hypertension, Adult, [id number] kb - How to Take Your Blood Pressure, [id number] kb - Managing Your Hypertension kb Forms: - Medication Reconciliation Form kb - Thank You Letter kb - Antibiotic Education kb - Prescription Opioid Use kb - Patient Portal Instructions kb - Leadership Thank You Letter kb Signatures: Dispatcher [employer] Tresa Cowart FNP-C FNP-Ckb Cristi Pleitez, RN RN ll1 Jose Frederick MD MD rt
--- NOTE | 2023-05-29 19:15 | ER ---
Nurse's Notes [facility] Name: Elsa Hunter Age: 53 yrs Sex: Female : 1970 Arrival Date: 05/29/2023 Time: 16:08 Bed 16 Private MD: Milan Jackson C Diagnosis: Essential (primary) hypertension;Subconjunctival hemorrhage Presentation: 05/28 16:32 Chief complaint: Patient states: BP fluctuating up and down since Tuesday although she ll1 is taking her medications. L eye got red today, so she came to get checked. + head pressure. Coronavirus screen: Client denies travel out of the [place] in the last 14 days. At this time, the client does not indicate any symptoms associated with coronavirus-19. Ebola Screen: Patient denies travel to an Ebola-affected area in the 21 days before illness onset. Initial Sepsis Screen: Does the patient meet any 2 criteria? No. Patient's initial sepsis screen is negative. Does the patient have a suspected source of infection? No. Patient's initial sepsis screen is negative. Risk Assessment: Do you want to hurt yourself or someone else? Patient reports no desire to harm self or others. Onset of symptoms was May 27, 2023. 16:32 Method Of Arrival: Ambulatory ll1 16:32 Acuity: ANASTACIA 2 ll1 Historical: - Allergies: 16:11 No Known Allergies; ll1 - PMHx: 16:11 GERD; High Cholesterol; Hypertension; ll1 - Immunization history:: Adult Immunizations up to date. - Infectious Disease History:: Denies. - Social history:: Smoking status: Patient denies any tobacco usage or history of. Screenin:28 [facility] ED Fall Risk Assessment (Adult) History of falling in the last 3 months, cp4 including since admission No falls in past 3 months (0 pts) Confusion or Disorientation No (0 pts) Intoxicated or Sedated No (0 pts) Impaired Gait No (0 pts) Mobility Assist Device Used No (0 pt) Altered Elimination No (0 pt) Score/Fall Risk Level 0 - 2 = Low Risk Oriented to surroundings, Maintained a safe environment, Assessed \T\ reinforced patient's understanding of fall precautions, Hourly rounding (assess needs \T\ fall precautionary measures) done. Abuse screen: Denies threats or abuse. Nutritional screening: No deficits noted. Tuberculosis screening: No symptoms or risk factors identified. Assessment: 17:28 General: Appears uncomfortable, Behavior is calm, cooperative, appropriate for age. cp4 Pain: Complains of pain in headache Pain currently is 9 out of 10 on a pain scale. Cardiovascular: No deficits noted. Rhythm is sinus rhythm. Vital Signs: 16:32 Pulse 50; Resp 17; Temp 97.9; Pulse Ox 96% ; Weight 68.95 kg; Height 4 ft. 9 in. ; Pain ll1 5/10; 16:32 BP 204 / 69; ll1 17:31 BP 182 / 61; Pulse 45; Resp 18; Pulse Ox 99% ; cp4 18:30 BP 180 / 72; Pulse 44; Resp 18; Pulse Ox 98% ; cp4 19:25 BP 186 / 68; Pulse 51; Resp 18; Pulse Ox 98% ; cp4 16:32 Body Mass Index 32.89 (68.95 kg, 144.78 cm) ll1 16:32 Pain Scale: Adult ll1 ED Course: 16:10 Patient arrived in ED. mr 16:11 Milan Jackson MD is Private Physician. mr 16:11 Arm band placed on. ll1 16:34 Triage completed. ll1 16:44 Gaby Romano is Primary Nurse. cp4 16:55 [facility] kb 16:55 Jose Frederick MD is Attending Physician. kb 17:25 Basic Metabolic Panel Sent. cp4 17:25 CBC with Diff Sent. cp4 17:25 Magnesium Sent. cp4 17:25 Troponin HS Sent. cp4 17:28 Bed in low position. Call light in reach. Side rails up X 1. cp4 17:28 No provider procedures requiring assistance completed. Initial lab(s) drawn, by ok, cp4 sent to lab. Inserted saline lock: 20 gauge in left antecubital area, using aseptic technique. Blood collected. 17:47 XRAY Chest (1 view) In Process Unspecified. EDMS 18:03 CT Head Brain wo Cont In Process Unspecified. EDMS 19:14 Milan Jackson MD is Referral Physician. kb 19:27 Provided Education on: hypertension. cp4 19:27 intact, bleeding controlled, No redness/swelling at site. Pressure dressing applied. cp4 Administered Medications: No medications were administered Medication: 17:28 VIS not applicable for this client. cp4 Outcome: 19:14 Discharge ordered by MD. cuevas 19:27 Discharged to home ambulatory, cp4 19:27 Condition: stable 19:27 Discharge instructions given to patient, Instructed on discharge instructions, follow up and referral plans. Demonstrated understanding of instructions, follow-up care, 19:28 Patient left the ED. cp4 Signatures: Dispatcher [employer] EDMS Tresa Al, [employer]-C [employer]-CkCristina Puentes, Franco Gamez mr Cristi Pleitez, RN RN ll1 Gaby Romano cp4
[2023-05-29 20:02] VITALS: BP 186/68; TEMP 97.9; O2SAT 98
== END 2023-05-29 19:28 | disposition home or self-care (01) ==
LOC: ER 16:08
DX: I10 Essential (primary) hypertension (principal); H11.32 Conjunctival hemorrhage, left eye
CPT/HCPCS: 36415; 70450; 71045; 80048; 83735; 84484; 85025; 93005; 99284